=== PATIENT | male | born 1945 | race Caucasian/White ===

== ENCOUNTER → 2017-07-13 | Outpatient (CLI) | payer MEDICARE ==
[2017-07-13 08:55] LABS: ANION GAP 12 (5-19); BLOOD UREA NITROGEN 18 mg/dL (7-20); CALCIUM 9.1 mg/dL (8.4-10.2); CARBON DIOXIDE 30 mmol/L (22-30); CHLORIDE 100 mmol/L (98-107); CREATININE RESULT 0.82 mg/dL (0.52-1.25); Direct HDL 46 mg/dL (>40); GLUCOSE 108 mg/dL (75-110); MAGNESIUM 1.8 mg/dL (1.6-2.3); POTASSIUM 4.3 mmol/L (3.6-5.0); SODIUM 142.2 mmol/L (137-145); TRIGLYCERIDES 104 mg/dL (<150)
[2017-07-13 09:06] LABS: DIRECT LDL 77 mg/dL (<100)
== END ==
LOC: OD 07:24
PROVIDERS: ATTEND Internal Medicine Cardiovascular Disease
DX: E11.9 Type 2 diabetes mellitus without complications (principal); R00.2 Palpitations; E78.2 Mixed hyperlipidemia
CPT/HCPCS: 36415; 80048; 80061; 83036; 83735; 84443

== ENCOUNTER → 2017-07-14 | Outpatient (CLI) | payer MEDICARE ==
[2017-07-14 16:29] LABS: HEMATOCRIT 48.2 % (37.9-51.0); HEMOGLOBIN 16.3 g/dL (13.5-17.0); HGB HCT DIFFERENCE 0.7; MEAN CORPUSCULAR HEMOGLOBIN 32.3 pg (27.0-33.4); MEAN CORPUSCULAR HGB CONC 33.8 g/dL (32.0-36.0); MEAN CORPUSCULAR VOLUME 96 fl (80-97); RED BLOOD COUNT 5.04 10^6/uL (4.35-5.55); RED CELL DISTRIBUTION WIDTH 14.5 % (11.5-14.0)
[2017-07-14 16:31] LABS: PROTHROMBIN TIME 12.3 SEC (11.4-15.4)
[2017-07-14 16:32] LABS: PARTIAL THROMBOPLASTIN TIME 33.1 SEC (23.5-35.8)
[2017-07-14 16:46] LABS: ANION GAP 12 (5-19); BLOOD UREA NITROGEN 20 mg/dL (7-20); CARBON DIOXIDE 29 mmol/L (22-30); CHLORIDE 102 mmol/L (98-107); CREATININE RESULT 0.79 mg/dL (0.52-1.25); GLUCOSE 102 mg/dL (75-110); POTASSIUM 4.7 mmol/L (3.6-5.0); SODIUM 142.6 mmol/L (137-145)
== END ==
LOC: OD 15:58
PROVIDERS: ATTEND Internal Medicine Cardiovascular Disease
DX: Z01.810 Encounter for preprocedural cardiovascular examination (principal); Z01.818 Encounter for other preprocedural examination; R07.89 Other chest pain; Z79.01 Long term (current) use of anticoagulants
CPT/HCPCS: 36415; 80048; 85027; 85610; 85730

== ENCOUNTER 2017-12-11 20:09 | Inpatient (IN) | payer MEDICARE ==
--- NOTE | 2017-12-11 20:36 | EKG REPORT ---
SEVERITY:- ABNORMAL ECG - SINUS RHYTHM BORDERLINE RIGHT AXIS DEVIATION NONSPECIFIC T ABNORMALITIES, INFERIOR LEADS : Confirmed by: Deepa Dempsey 11-Dec-2017 17:36:00
[2017-12-11] MEDS ORDERED: VANCOMYCIN HCL INJ 1000 MG VIAL IV ONE (20:47)
[2017-12-11] MEDS ORDERED: PIPERACILLIN/TAZOBACTAM 3.375 GM VIAL IV ONE (20:47)
--- NOTE | 2017-12-11 20:58 | RADIOLOGY REPORT (SQ) ---
EXAM DESCRIPTION: CT HEAD WITHOUT COMPLETED DATE/TIME: 12/11/2017 8:35 pm REASON FOR STUDY: stroke sx COMPARISON: None. TECHNIQUE: Axial images acquired through the brain without intravenous contrast. Images reviewed wi th bone, brain and subdural windows. Images stored on PACS. All CT scanners at this facility use dose modulation, iterative reconstruction, and/or weight based d osing when appropriate to reduce radiation dose to as low as reasonably achievable (ALARA). [facility]: Dose Right [facility]: CareDose [facility]: Dose Right [facility]: Teradose 4D [facility]: MobileSuites RADIATION DOSE: CT Rad equipment meets quality standard of care and radiation dose reduction techniq ues were employed. CTDIvol: 53.2 mGy. DLP: 1070 mGy-cm. mGy. LIMITATIONS: None. FINDINGS: VENTRICLES: Mildly prominent. CEREBRUM: No masses. No hemorrhage. No midline shift. Areas of low density in the white matter mos t likely due to chronic micro-vascular ischemic change. No evidence for acute infarction. CEREBELLUM: No masses. No hemorrhage. No alteration of density. No evidence for acute infarction. EXTRAAXIAL SPACES: Mild age-related involutional change. No fluid collections. No masses. ORBITS AND GLOBE: No intra- or extraconal masses. Normal contour of globe without masses. CALVARIUM: No fracture. PARANASAL SINUSES: No fluid or mucosal thickening. SOFT TISSUES: No mass or hematoma. OTHER: No other significant finding. IMPRESSION: MILD CHRONIC CHANGES OF ATROPHY AND MICROVASCULAR ISCHEMIA. NO ACUTE PROCESS. EVIDENCE OF ACUTE STROKE: NO. TECHNICAL DOCUMENTATION: JOB ID: [id number] Quality ID # [id number]: Final reports with documentation of one or more dose reduction techniques (e.g., Au tomated exposure control, adjustment of the mA and/or kV according to patient size, use of iterative reconstruction technique) 2010 [employer]- All Rights Reserved Reading location - IP/workstation name: [email or web address]
--- NOTE | 2017-12-11 21:00 | RADIOLOGY REPORT (SQ) ---
EXAM DESCRIPTION: CHEST SINGLE VIEW COMPLETED DATE/TIME: 12/11/2017 8:37 pm REASON FOR STUDY: stroke alert COMPARISON: 05/26/2017 EXAM PARAMETERS: NUMBER OF VIEWS: One view. TECHNIQUE: Single frontal radiographic view of the chest acquired. RADIATION DOSE: NA LIMITATIONS: None. FINDINGS: LUNGS AND PLEURA: Chronically increased right lung base interstitial markings. No new foc al consolidation. No pneumothorax. No pleural effusion. MEDIASTINUM AND HILAR STRUCTURES: No masses. Contour normal. HEART AND VASCULAR STRUCTURES: Heart normal in size. Normal vasculature. BONES: No acute findings. HARDWARE: None in the chest. OTHER: No other significant finding. IMPRESSION: NO ACUTE RADIOGRAPHIC FINDING IN THE CHEST. TECHNICAL DOCUMENTATION: JOB ID: [id number] [employer]- All Rights Reserved Reading location - IP/workstation name: [email or web address]
--- NOTE | 2017-12-11 21:07 | ER Document Report ---
ED General - General Chief Complaint: Trouble Talking Stated Complaint: POSSIBLE STROKE SYMPTOMS Time Seen by Provider: 12/11/17 20:34 Mode of Arrival: Wheelchair Information source: Patient, Relative Notes: 72-year-old male history of COPD presents with complaints of difficulty with his speech. is unclear of the last known well possibly this morning around 10 AM, notes that when she awoke from sleeping around 6 PM the patient was having difficulty with speech that she noticed that he was having some difficulty breathing breathing from his belly. Patient has been having cellulitis of his right anterior llanos with drainage of approximately 8 week duration TRAVEL OUTSIDE OF THE [place] IN LAST 30 DAYS: No - HPI Onset: Just prior to arrival Onset/Duration: Sudden Quality of pain: Achy Severity: Mild Pain Level: 1 Associated symptoms: Shortness of breath, Other Exacerbated by: Other Relieved by: Denies Similar symptoms previously: No Recently seen / treated by doctor: No - Related Data Allergies/Adverse Reactions: No Known Allergies Allergy (Verified 12/11/17 20:10) Past Medical History - Social History Smoking Status: Never Smoker Cigarette use (# per day): No Chew tobacco use (# tins/day): No Smoking Education Provided: No Family History: Reviewed & Not Pertinent - Past Medical History Cardiac Medical History: Reports: Hx Hypercholesterolemia, Hx Hypertension Denies: Hx Coronary Artery Disease, Hx Heart Attack Pulmonary Medical History: Reports: Hx COPD Denies: Hx Asthma, Hx Bronchitis, Hx Pneumonia Neurological Medical History: Denies: Hx Cerebrovascular Accident, Hx Seizures Endocrine Medical History: Reports: Hx Diabetes Mellitus Type 2 Musculoskeltal Medical History: 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 Denies recent illness. EENT: Denies eye, ear, throat, or mouth pain or symptoms. Denies nasal or sinus congestion or discharge. Denies throat, tongue, or mouth swelling or difficulty swallowing. CARDIOVASCULAR: Denies chest pain. Denies palpitations or racing or irregular heart beat. Denies ankle edema. RESPIRATORY: Denies cough, cold, or chest congestion. Denies shortness of breath, difficulty breathing, or wheezing. GASTROINTESTINAL: Denies abdominal pain or distention. Denies nausea, vomiting , or diarrhea. Denies blood in vomitus, stools, or per rectum. Denies black, tarry stools. Denies constipation. GENITOURINARY: Denies difficulty urinating, painful urination, burning, frequency, blood in urine, or discharge. MUSCULOSKELETAL: Denies back or neck pain or stiffness. Denies joint pain or swelling. SKIN: Right leg redness HEMATOLOGIC : Denies easy bruising or bleeding. LYMPHATIC: Denies swollen, enlarged glands. NEUROLOGICAL: Denies confusion or altered mental status. Denies passing out or loss of consciousness. Denies dizziness or lightheadedness. Denies headache. Denies weakness or paralysis or loss of use of either side. Denies problems with gait or speech. Denies sensory loss, numbness, or tingling. Denies seizures. PSYCHIATRIC: Denies anxiety or stress. Denies depression, suicidal ideation, or homicidal ideation. ALL OTHER SYSTEMS REVIEWED AND NEGATIVE. Dictation was performed using [employer] voice recognition software PHYSICAL EXAMINATION: GENERAL: Well-appearing, well-nourished and in no acute distress. HEAD: Atraumatic, normocephalic. EYES: Pupils equal round and reactive to light, extraocular movements intact, sclera anicteric, conjunctiva are normal. ENT: Nares patent, oropharynx clear without exudates. Moist mucous membranes. NECK: Normal range of motion, supple without lymphadenopathy LUNGS: Breath sounds clear to auscultation bilaterally and equal. No wheezes rales or rhonchi. HEART: Regular rate and rhythm without murmurs ABDOMEN: Soft, nontender, nondistended abdomen. No guarding, no rebound. No masses appreciated. Musculoskeletal: Normal range of motion, no pitting or edema. No cyanosis. NEUROLOGICAL: Patient is able to speak in full sentences and then intermittently stops and has difficulty remembering words PSYCH: Normal mood, normal affect. SKIN: Right lower extremity cellulitic with anterior llanos drainage Physical Exam - Vital signs Vitals: Temp Pulse Resp BP Pulse Ox 100.1 F 102 H 20 126/64 H 96 12/11/17 20:16 12/11/17 20:16 12/11/17 20:16 12/11/17 20:16 12/11/17 20:16 Course - Re-evaluation Re-evalutation: 12/11/17 21:[address] which noted no acute abnormality, is unclear if this is actually a CVA versus TIA or if the patient is a septic 12/11/17 22:48 patietns labs note lactic 3.0, temp 100.1, cellulitis , pt i sweta is confused from the sepsis rather than a stroke. will admit for sepsis - Vital Signs Vital signs: Temp Pulse Resp BP Pulse Ox 100.1 F 102 H 20 126/64 H 96 12/11/17 20:16 12/11/17 20:16 12/11/17 20:16 12/11/17 20:16 12/11/17 20:16 - Laboratory Result Diagrams: 12/11/17 20:55 12/11/17 22:00 Laboratory results interpreted by me: 12/11/17 12/11/17 12/11/17 20:46 20:55 20:55 WBC 19.9 H RDW 14.3 H Seg Neutrophils % 86.4 H Lymphocytes % 6.3 L Absolute Neutrophils 17.2 H BUN Glucose POC Glucose 155 H Lactic Acid 3.0 H 12/11/17 22:00 WBC RDW Seg Neutrophils % Lymphocytes % Absolute Neutrophils BUN 22 H Glucose 150 H POC Glucose Lactic Acid - Diagnostic Test Radiology reviewed: Image reviewed - CT head without contrast noted no acute abnormality, Reports reviewed Critical Care Note - Critical Care Note Total time excluding time spent on procedures (mins): 31 Comments: 31 minutes of critical care time spent in direct contact evaluating and reevaluating the patient, treating symptoms, reviewing labs and studies and speaking with family and consultants excluding any procedures Discharge - Discharge Clinical Impression: Sepsis affecting skin Cellulitis Qualifiers: Site of cellulitis: extremity Site of cellulitis of extremity: lower extremity Laterality: right Qualified Code(s): L03.115 - Cellulitis of right lower limb Condition: Stable Disposition: ADMITTED INPATIENT Admitting Provider: Hospitalist Unit Admitted: Telemetry
[2017-12-11 21:11] LABS: ABSOLUTE BASOPHILS # (AUTO) 0.1 10^3/uL (0.0-0.2); ABSOLUTE LYMPHOCYTES (AUTO) 1.2 10^3/uL (0.5-4.7); ABSOLUTE MONOCYTES (AUTO) 1.4 10^3/uL (0.1-1.4); ABSOLUTE NEUT (AUTO) 17.2 10^3/uL (1.7-8.2); BASOPHILS % (AUTO) 0.3 % (0-2); HEMATOCRIT 42.2 % (37.9-51.0); HEMOGLOBIN 13.9 g/dL (13.5-17.0); INTERNATIONAL RATION (INR) 1.11; LYMPHOCYTES % (AUTO) 6.3 % (13-45); MEAN CORPUSCULAR HEMOGLOBIN 31.3 pg (27.0-33.4); MEAN CORPUSCULAR HGB CONC 32.9 g/dL (32.0-36.0); MEAN CORPUSCULAR VOLUME 95 fl (80-97); PLATELET COUNT 171 10^3/uL (150-450); RED BLOOD COUNT 4.43 10^6/uL (4.35-5.55); RED CELL DISTRIBUTION WIDTH 14.3 % (11.5-14.0); SEGMENTED NEUTROPHILS % (AUTO) 86.4 % (42-78); TOTAL CELLS COUNTED % (AUTO) 100 %; WHITE BLOOD COUNT 19.9 10^3/uL (4.0-10.5)
[2017-12-11 21:12] LABS: PARTIAL THROMBOPLASTIN TIME 33.6 SEC (23.5-35.8)
[2017-12-11 21:17] LABS: PROTHROMBIN TIME 14.8 SEC (11.4-15.4)
[2017-12-11 21:48] LABS: VENOUS BLOOD BASE EXCESS 2.9 mmol/L; VENOUS BLOOD PCO2 44.4 mmHg (35-63); VENOUS BLOOD PH 7.42 (7.30-7.42)
[2017-12-11 21:49] LABS: CREATINE KINASE MB 0.54 ng/mL (<4.55); TROPONIN I 0.018 ng/mL
[2017-12-11 22:32] LABS: ALANINE AMINOTRANSFERASE 23 U/L (21-72); ALBUMIN 3.7 g/dL (3.5-5.0); ALKALINE PHOSPHATASE 59 U/L (38-126); ANION GAP 12 (5-19); ASPARTATE AMINO TRANSFERASE 18 U/L (17-59); BILIRUBIN,DIRECT 0.2 mg/dL (0.0-0.4); BILIRUBIN,TOTAL 0.6 mg/dL (0.2-1.3); BLOOD UREA NITROGEN 22 mg/dL (7-20); CALCIUM 9.2 mg/dL (8.4-10.2); CARBON DIOXIDE 29 mmol/L (22-30); CHLORIDE 99 mmol/L (98-107); CREATINE KINASE 93 U/L (55-170); GLUCOSE 150 mg/dL (75-110); POTASSIUM 4.3 mmol/L (3.6-5.0); TOTAL PROTEIN 6.4 g/dL (6.3-8.2)
[2017-12-11] MEDS ORDERED: OXYCODONE-ACETAMINOPHEN 5-325 MG TABLET PO PRN (23:00)
[2017-12-11] MEDS ORDERED: ONDANSETRON HCL INJ/PF 4 MG/2 ML SDV IV PRN (23:00)
[2017-12-11] MEDS ORDERED: ACETAMINOPHEN 325 MG TABLET PO PRN (23:00)
[2017-12-11] MEDS ORDERED: DEXTROSE 50%-WATER 25 GM/50 ML DISP.SYRIN IV PRN ×2 (23:10)
[2017-12-11] MEDS ORDERED: GLUCAGON,HUMAN RECOMB 1 MG INJ IM PRN (23:10)
[2017-12-11] MEDS ORDERED: DEXTROSE 40% GEL 15 GM TUBE PO PRN ×2 (23:10)
[2017-12-11] MEDS ORDERED: VANCOMYCIN HCL 0 MG in DEXTROSE 5%-WATER 250 ML IV NR (23:15)
[2017-12-11] MEDS ORDERED: VANCOMYCIN HCL INJ 1000 MG VIAL IV PRN (23:25)
[2017-12-11] MEDS ORDERED: VANCOMYCIN HCL 1,000 MG in DEXTROSE 5%-WATER 250 ML IV ONE (23:30)
--- NOTE | 2017-12-12 | PDOC H&P ---
History of Present Illness Admission Date/PCP: 12/11/17 23:00 History of Present Illness: KEILA VIEYRA is a 72 year old male patient with past medical history of HTN, COPD, HLD, diabetes mellitus and obesity, brought with chief complaint of confusion, incoherent speech and shortness of breath. All his symptoms resolved with spontaneously when he arrived to the hospital. Patient found to have draining cellulitis of the left lower extremity. The cellulitis has been going on for the last 6 weeks and patient has visited a 2 occasions his primary care physician for which she was given topical antibiotics. His blood work shows leukocytosis of 20,000 and lactic acid of 3. Patient also found to have fever of 100.1. His CT scan is negative for acute intracranial process. No history of chest pain, palpitation or diaphoresis. He does not have any nausea , vomiting, abdominal pain or diarrhea. No urinary complaints. His difficulty of speech and confusion might be explained by sepsis but for the benefit of the doubt I would request MRI of the brain to rule out stroke. Past Medical History Cardiac Medical History: Reports: Hyperlipidema, Hypertension Denies: Coronary Artery Disease, Myocardial Infarction Pulmonary Medical History: Reports: Chronic Obstructive Pulmonary Disease (COPD) Denies: Asthma, Bronchitis, Pneumonia Neurological Medical History: Denies: Seizures Endocrine Medical History: Reports: Diabetes Mellitus Type 2 Musculoskeltal Medical History: Reports: Arthritis - spine, right hip, bilat hands more so right hand Hematology: Denies: Anemia Past Surgical History Past Surgical History: Reports: Appendectomy Social History Smoking Status: Never Smoker Frequency of Alcohol Use: None Drugs: None - Advance Directive Resuscitation Status: Full Code Family History Family History: Reviewed & Not Pertinent, DM, Hypertension Parental Family History Reviewed: Yes Children Family History Reviewed: Yes Sibling(s) Family History Reviewed.: Yes Medication/Allergy Home Medications: Aspirin [Adult Low Dose Aspirin EC] 81 mg PO DAILY 04/28/16 Atorvastatin Calcium 40 mg PO DAILY 04/28/16 Benazepril HCl 10 mg PO DAILY 04/28/16 Finasteride 5 mg PO DAILY 04/28/16 Levothyroxine Sodium 150 mcg PO DAILY 04/28/16 Metformin HCl 500 mg PO DAILY 04/28/16 Tamsulosin HCl [Flomax] 0.4 mg PO DAILY 04/28/16 Allergies/Adverse Reactions: No Known Allergies Allergy (Verified 12/11/17 20:10) Review of Systems Constitutional: PRESENT: as per HPI Eyes: PRESENT: as per HPI Cardiovascular: PRESENT: as per HPI Respiratory: PRESENT: as per HPI Gastrointestinal: PRESENT: as per HPI Integumentary: PRESENT: as per HPI Neurological: PRESENT: as per HPI Physical Exam Vital Signs: Temp Pulse Resp BP Pulse Ox 100.1 F 100 26 H 112/77 95 12/11/17 20:16 12/11/17 21:00 12/11/17 23:01 12/11/17 23:00 12/11/17 23:01 General appearance: PRESENT: mild distress Eye exam: PRESENT: conjunctiva pink, EOMI, PERRLA. ABSENT: scleral icterus Respiratory exam: PRESENT: clear to auscultation javier. ABSENT: rales, rhonchi, wheezes Cardiovascular exam: PRESENT: RRR. ABSENT: diastolic murmur, rubs, systolic murmur GI/Abdominal exam: PRESENT: normal bowel sounds, soft. ABSENT: distended, guarding, mass, organolmegaly, rebound, tenderness Extremities exam: PRESENT: other - The pertinent finding is an indurated swollen tender pus draining cellulitis of the right lower extremity Neurological exam: PRESENT: alert, awake, oriented to person, oriented to place , oriented to time, oriented to situation, CN II-XII grossly intact. ABSENT: motor sensory deficit Psychiatric exam: PRESENT: appropriate affect, normal mood. ABSENT: homicidal ideation, suicidal ideation Results Impressions: Chest X-Ray 12/11/17 00:00 IMPRESSION: NO ACUTE RADIOGRAPHIC FINDING IN THE CHEST. Head CT 12/11/17 00:00 IMPRESSION: MILD CHRONIC CHANGES OF ATROPHY AND MICROVASCULAR ISCHEMIA. NO ACUTE PROCESS. EVIDENCE OF ACUTE STROKE: NO. Assessment & Plan - Diagnosis (1) Sepsis Qualifiers: Sepsis type: sepsis due to unspecified organism Qualified Code(s): A41.9 - Sepsis, unspecified organism Is this a current diagnosis for this admission?: Yes Plan: Patient has leukocytosis, fever, lactic acidosis and source of infection. He is empirically started on vancomycin and Zosyn. Wound culture and blood cultures are requested. And we de-escalate his antibiotics based on his clinical progress and culture results. (2) Cellulitis Qualifiers: Laterality: right Is this a current diagnosis for this admission?: Yes Plan: As a #1 (3) COPD (chronic obstructive pulmonary disease) Qualifiers: Chronic bronchitis type: unspecified Is this a current diagnosis for this admission?: Yes Plan: Stable. As needed breathing treatments. (4) Hypertension Qualifiers: Hypertension type: essential hypertension Qualified Code(s): I10 - Essential (primary) hypertension Is this a current diagnosis for this admission?: Yes Plan: His home medications. - Time Time Spent: 30 to 50 Minutes - Inpatient Certification Medical Necessity: Significant Comorbidiites Make Outpatient Treatment Too Risky , Need for IV Antibiotics
[2017-12-12] MEDS ORDERED: PIPERACILLIN/TAZOBACTAM 3.375 GM VIAL IV ONE (02:48)
[2017-12-12] MEDS ORDERED: VANCOMYCIN HCL INJ 1000 MG VIAL ONE (02:49)
[2017-12-12] MEDS ORDERED: PIPERACILLIN/TAZOBACTAM 3.375 GM VIAL IV PRN (04:00)
[2017-12-12] MEDS: PIPERACILLIN SODIUM/TAZOBACTAM 3.375 GM in NORMAL SALINE 100 ML IV SCH ×3 (05:12→20:28)
[2017-12-12] MEDS: LANSOPRAZOLE 30 MG TAB.RAP.DR PO SCH (05:17)
[2017-12-12 06:14] LABS: ABSOLUTE BASOPHILS # (AUTO) 0.1 10^3/uL (0.0-0.2); ABSOLUTE LYMPHOCYTES (AUTO) 1.6 10^3/uL (0.5-4.7); ABSOLUTE MONOCYTES (AUTO) 1.4 10^3/uL (0.1-1.4); ABSOLUTE NEUT (AUTO) 14.7 10^3/uL (1.7-8.2); BASOPHILS % (AUTO) 0.5 % (0-2); HEMATOCRIT 38.8 % (37.9-51.0); HEMOGLOBIN 12.7 g/dL (13.5-17.0); LYMPHOCYTES % (AUTO) 9.1 % (13-45); MEAN CORPUSCULAR HEMOGLOBIN 30.8 pg (27.0-33.4); MEAN CORPUSCULAR HGB CONC 32.7 g/dL (32.0-36.0); MEAN CORPUSCULAR VOLUME 94 fl (80-97); MONOCYTES % (AUTO) 8.1 % (3-13); PLATELET COUNT 152 10^3/uL (150-450); RED BLOOD COUNT 4.13 10^6/uL (4.35-5.55); RED CELL DISTRIBUTION WIDTH 14.5 % (11.5-14.0); SEGMENTED NEUTROPHILS % (AUTO) 82.3 % (42-78); TOTAL CELLS COUNTED % (AUTO) 100 %; WHITE BLOOD COUNT 17.9 10^3/uL (4.0-10.5)
[2017-12-12 06:35] LABS: ANION GAP 12 (5-19); BLOOD UREA NITROGEN 22 mg/dL (7-20); CALCIUM 8.6 mg/dL (8.4-10.2); CARBON DIOXIDE 27 mmol/L (22-30); CHLORIDE 101 mmol/L (98-107); GLUCOSE 167 mg/dL (75-110); POTASSIUM 3.6 mmol/L (3.6-5.0)
[2017-12-12] MEDS: INSULIN LISPRO 100 UNIT/ML 3 ML VIAL SUBCUT PRN ×2 (08:04→16:09)
[2017-12-12] MEDS ORDERED: DIAZEPAM INJ 10 MG/2 ML DISP.SYRIN IV PRN (10:30)
[2017-12-12] MEDS ORDERED: LEVOTHYROXINE SODIUM 0.15 MG TABLET PO ONE (10:30)
[2017-12-12] MEDS ORDERED: ASPIRIN 81 MG TABLET, ENT COATED PO ONE (10:30)
[2017-12-12] MEDS: ENOXAPARIN SODIUM INJ 40 MG/0.4 ML DISP.SYRIN SUBCUT SCH (10:33)
[2017-12-12] MEDS ORDERED: VANCOMYCIN HCL 1,500 MG in DEXTROSE 5%-WATER 250 ML IV ONE (11:30)
--- NOTE | 2017-12-12 12:12 | RADIOLOGY REPORT (SQ) ---
EXAM DESCRIPTION: MRI HEAD COMBO COMPLETED DATE/TIME: 12/12/2017 11:57 am REASON FOR STUDY: stroke COMPARISON: CT dated 12/11/2017. TECHNIQUE: Multiplanar imaging includes noncontrasted T1, T2, FLAIR, diffusion with ADC map and post gadolinium contrast T1 sequences. Images stored on PACS. CONTRAST TYPE AND DOSE: 20 mL Multihance. RENAL FUNCTION: GFR > 60. LIMITATIONS: None. FINDINGS: ANATOMY: No anomalies. Normal vascular flow voids. Pituitary fossa normal. CSF SPACES: Normal in size and contour. No hemorrhage. CEREBRUM: Sulci and gyri normal in size and contour. Normal white matter signal on FLAIR imaging. No evidence of hemorrhage, mass, or extraaxial fluid collection. No abnormal enhancement post contrast. POSTERIOR FOSSA: No signal alteration. No hemorrhage. No edema, masses, or mass effect. Internal nadia tory canals, cerebellopontine angles, mastoids normal. No enhancing lesions. No abnormal enhancement post contrast. DIFFUSION IMAGING: Negative for acute or subacute infarction. ORBITS: No masses. Globes normal. PARANASAL SINUSES: No fluid levels. Mucosa normal. OTHER: No other significant finding. IMPRESSION: NORMAL MRI OF THE BRAIN WITHOUT AND WITH INTRAVENOUS GADOLINIUM CONTRAST. EVIDENCE OF ACUTE STROKE: NO. TECHNICAL DOCUMENTATION: JOB ID: [id number] [employer]- All Rights Reserved Reading location - IP/workstation name: [email or web address]
--- NOTE | 2017-12-12 12:14 | RADIOLOGY REPORT (SQ) ---
EXAM DESCRIPTION: MRA HEAD WITHOUT COMPLETED DATE/TIME: 12/12/2017 11:57 am REASON FOR STUDY: acute confusion and weakness. Eval for cva COMPARISON: None. TECHNIQUE: Axial 3-D [id number] acquisition imaging performed through the brain in the area of t he [place] of [place]. Images reformatted using 3-D MIPS. LIMITATIONS: None. FINDINGS: SOURCE IMAGES: No unexpected findings on source images. No large masses. 3-D MIP: No aneurysm. No occlusions. No significant stenosis. OTHER: No other significant finding. IMPRESSION: NORMAL MRA OF THE [place] OF [place]. TECHNICAL DOCUMENTATION: JOB ID: [id number] [employer]- All Rights Reserved Reading location - IP/workstation name: [email or web address]
--- NOTE | 2017-12-12 18:48 | PDOC PROGRESS REPORT ---
<CANDE STEIN A - Last Filed: 12/12/17 18:43> Subjective Progress Note for:: 12/12/17 Subjective:: KEILA VIEYRA is a 72-year-old male with a PMH of HTN, COPD, HLD, diabetes and obesity. He originally presented to the emergency department 12/11/2017 with a chief complaint of confusion, incoherent speech and difficulty with word finding. His symptoms resolved spontaneously while he was in the emergency department, but an incidental finding on the assessment was he had draining cellulitis to the left lower extremity. The patient was admitted for treatment of his cellulitis, as well as TIA workup. The patient was seen this morning on rounds, he is sitting up on the side of the bed eating breakfast. The patient is a and O 3, able to answer all questions appropriately and carry on a coherent conversation. The patient denies difficulty with word finding, denies confusion, and states he feels " like his normal self." No focal deficits noted in the upper or lower extremities, although he does exhibit mild weakness (4/5) equally in his bilateral lower extremities. RLE appears erythematous with +1 pitting edema, open draining blisters on the anterior aspect of the right lower extremity. The patient endorses tenderness to palpation to the area below his knee. Reason For Visit: SEPSIS/CELLULITIS Physical Exam Vital Signs: Temp Pulse Resp BP Pulse Ox 99.8 F 108 H 20 120/80 95 12/12/17 15:32 12/12/17 15:32 12/12/17 15:32 12/12/17 15:32 12/12/17 15:32 Intake & Output 12/11/17 12/12/17 12/13/17 06:59 06:59 06:59 Intake Total 942 1075 Output Total 250 Balance 692 1075 Weight 130 kg General appearance: PRESENT: no acute distress Eye exam: PRESENT: conjunctiva pink, PERRLA Mouth exam: PRESENT: moist Neck exam: PRESENT: full ROM Respiratory exam: PRESENT: clear to auscultation javier, symmetrical, unlabored Cardiovascular exam: PRESENT: +S1, +S2 Pulses: PRESENT: normal radial pulses, +1 pedal pulses bilateral GI/Abdominal exam: PRESENT: normal bowel sounds, soft. ABSENT: tenderness Extremities exam: PRESENT: full ROM, pedal edema, +1 edema Musculoskeletal exam: PRESENT: ambulatory, full ROM Neurological exam: PRESENT: alert, awake, oriented to person, oriented to place , oriented to time, oriented to situation. ABSENT: motor sensory deficit, aphasic Psychiatric exam: PRESENT: appropriate affect Skin exam: PRESENT: erythema - RLE, intact, vesicles - Anterior lower right leg Results Laboratory Results: 12/12/17 06:05 12/12/17 06:05 12/12/17 12/12/17 12/12/17 01:09 06:05 06:05 WBC 17.9 H RBC 4.13 L Hgb 12.7 L Hct 38.8 MCV 94 MCH 30.8 MCHC 32.7 RDW 14.5 H Plt Count 152 Seg Neutrophils % 82.3 H Lymphocytes % 9.1 L Monocytes % 8.1 Eosinophils % 0.0 Basophils % 0.5 Absolute Neutrophils 14.7 H Absolute Lymphocytes 1.6 Absolute Monocytes 1.4 Absolute Eosinophils 0.0 Absolute Basophils 0.1 Sodium 140.0 Potassium 3.6 Chloride 101 Carbon Dioxide 27 Anion Gap 12 BUN 22 H Creatinine 0.89 Est GFR ( Amer) > 60 Est GFR (Non-Af Amer) > 60 Glucose 167 H Lactic Acid 1.7 Calcium 8.6 Impressions: Chest X-Ray 12/11/17 00:00 IMPRESSION: NO ACUTE RADIOGRAPHIC FINDING IN THE CHEST. Head CT 12/11/17 00:00 IMPRESSION: MILD CHRONIC CHANGES OF ATROPHY AND MICROVASCULAR ISCHEMIA. NO ACUTE PROCESS. EVIDENCE OF ACUTE STROKE: NO. Brain MRI with MRA 12/12/17 00:00 IMPRESSION: NORMAL MRA OF THE [place] OF [place]. Head MRI 12/12/17 00:00 IMPRESSION: NORMAL MRI OF THE BRAIN WITHOUT AND WITH INTRAVENOUS GADOLINIUM CONTRAST. EVIDENCE OF ACUTE STROKE: NO. Status: Imported from PACS Assessment & Plan - Diagnosis (1) Sepsis QualifierTitle: Sepsis type: sepsis due to unspecified organism Qualified Code(s): A41.9 - Sepsis, unspecified organism Is this a current diagnosis for this admission?: Yes Plan: Improving. Sepsis as evidenced by leukocytosis (WBC19.9 ->17), elevated lactate (3.0 ->1.7), acute confusion (albeit transient) Infectious source is likely right lower extremity cellulitis. Empirically started on vancomycin and Zosyn IV. Wound and blood cultures pending. (2) TIA (transient ischemic attack) QualifierTitle: Transient cerebral ischemia type: transient global amnesia Qualified Code(s): G45.4 - Transient global amnesia Is this a current diagnosis for this admission?: Yes Plan: Patient initially presented to the emergency department for difficulty with word finding, incoherent speech, and altered mental status. Patient symptoms resolved spontaneously while in the emergency department. No focal deficits upon evaluation today Initial head CT benign. Continue home dose aspirin and statin. Plan for MRI/MRA head and carotid Doppler as part of TIA workup (3) Cellulitis QualifierTitle: Site of cellulitis: extremity Site of cellulitis of extremity: lower extremity Laterality: right Qualified Code(s): L03.115 - Cellulitis of right lower limb Is this a current diagnosis for this admission?: Yes Plan: Incidental finding upon presentation to the emergency department. Erythema and edema to lower RLE. Open blisters draining serous fluid. Patient states he was previously seeing a vascular surgeon, Dr. Cynthia Donaldson, for the cellulitis in his RLE. He reports that he was never on antibiotics, only on topical triple antibiotic ointment Started on Vanc/Zosyn for broad spectrum coverage, waiting for wound and blood culture results The patient denies fever or chills. He is otherwise nontoxic appearing. (4) HLD (hyperlipidemia) QualifierTitle: Hyperlipidemia type: unspecified Qualified Code(s): E78.5 - Hyperlipidemia, unspecified Is this a current diagnosis for this admission?: Yes Plan: Patient endorses history of hyperlipidemia. We will continue home dose statin. (5) COPD (chronic obstructive pulmonary disease) QualifierTitle: Chronic bronchitis type: unspecified Is this a current diagnosis for this admission?: Yes Plan: Patient endorses history of COPD. Currently requiring supplemental oxygen for SPO2 >88% Lung sounds clear upon auscultation, patient denies shortness of breath or dyspnea. Continue home dose inhalers (6) Hypertension QualifierTitle: Hypertension type: essential hypertension Qualified Code( s): I10 - Essential (primary) hypertension Is this a current diagnosis for this admission?: Yes Plan: Patient endorses a history of hypertension. Restarted on home dose antihypertensives. He has remained relatively NORMOtensive since his admission - Time Time Spent with patient: 15-24 minutes Medications reviewed and adjusted accordingly: Yes Anticipated discharge: Home - Inpatient Certification Based on my medical assessment, after consideration of the patient's comorbidities, presenting symptoms, or acuity I expect that the services needed warrant INPATIENT care.: Yes I certify that my determination is in accordance with my understanding of Medicare's requirements for reasonable and necessary INPATIENT services [42 CFR 412.3e].: Yes Medical Necessity: Risk of Complication if Not Cared For in Hospital <ASHAJOSIASNOVEMBER C - Last Filed: 12/13/17 07:20> Subjective Reason For Visit: SEPSIS/CELLULITIS Physical Exam Vital Signs: Temp Pulse Resp BP Pulse Ox 100.1 F 94 28 H 134/80 H 94 12/13/17 03:37 12/13/17 03:37 12/13/17 03:37 12/13/17 03:37 12/13/17 03:37 Intake & Output 12/12/17 12/13/17 12/14/17 06:59 06:59 06:59 Intake Total 942 1920 Output Total 250 1300 Balance 692 620 Weight 130 kg 129 kg Results Laboratory Results: 12/13/17 06:17 12/13/17 06:17 12/13/17 12/13/17 06:17 06:17 WBC 13.7 H RBC 4.16 L Hgb 13.0 L Hct 39.4 MCV 95 MCH 31.2 MCHC 33.0 RDW 14.1 H Plt Count 147 L Seg Neutrophils % 73.0 Lymphocytes % 14.3 Monocytes % 11.8 Eosinophils % 0.5 Basophils % 0.4 Absolute Neutrophils 10.0 H Absolute Lymphocytes 2.0 Absolute Monocytes 1.6 H Absolute Eosinophils 0.1 Absolute Basophils 0.1 Sodium 138.5 Potassium 3.8 Chloride 100 Carbon Dioxide 27 Anion Gap 12 BUN 18 Creatinine 0.81 Est GFR ( Amer) > 60 Est GFR (Non-Af Amer) > 60 Glucose 157 H Calcium 8.8 Impressions: Chest X-Ray 12/11/17 00:00 IMPRESSION: NO ACUTE RADIOGRAPHIC FINDING IN THE CHEST. Head CT 12/11/17 00:00 IMPRESSION: MILD CHRONIC CHANGES OF ATROPHY AND MICROVASCULAR ISCHEMIA. NO ACUTE PROCESS. EVIDENCE OF ACUTE STROKE: NO. Brain MRI with MRA 12/12/17 00:00 IMPRESSION: NORMAL MRA OF THE [place] OF [place]. Head MRI 12/12/17 00:00 IMPRESSION: NORMAL MRI OF THE BRAIN WITHOUT AND WITH INTRAVENOUS GADOLINIUM CONTRAST. EVIDENCE OF ACUTE STROKE: NO. Assessment & Plan - Plan Summary Plan Summary: Cosigning document for Cande Stein NP
[2017-12-12] MEDS: OXYCODONE HCL IR 5 MG TABLET PO PRN (20:29)
[2017-12-12] MEDS: VANCOMYCIN HCL 1,500 MG in DEXTROSE 5%-WATER 250 ML IV SCH (21:39)
[2017-12-12] MEDS: METOPROLOL TARTRATE 25 MG TABLET PO SCH (21:42)
[2017-12-12] MEDS ORDERED: ATORVASTATIN CALCIUM 20 MG TABLET PO SCH (22:00)
[2017-12-12] MEDS ORDERED: ATORVASTATIN CALCIUM 10 MG TABLET PO SCH (22:00)
[2017-12-13] MEDS: OXYCODONE HCL IR 5 MG TABLET PO PRN (03:02)
[2017-12-13] MEDS: PIPERACILLIN SODIUM/TAZOBACTAM 3.375 GM in NORMAL SALINE 100 ML IV SCH ×3 (03:03→14:56)
[2017-12-13] MEDS: LANSOPRAZOLE 30 MG TAB.RAP.DR PO SCH (05:33)
[2017-12-13] MEDS ORDERED: LEVOTHYROXINE SODIUM 0.025 MG TABLET PO SCH (06:00)
[2017-12-13] MEDS ORDERED: LEVOTHYROXINE SODIUM 0.15 MG TABLET PO SCH ×2 (06:00)
[2017-12-13 06:34] LABS: ABSOLUTE BASOPHILS # (AUTO) 0.1 10^3/uL (0.0-0.2); ABSOLUTE EOSINOPHILS # (AUTO) 0.1 10^3/uL (0.0-0.6); ABSOLUTE MONOCYTES (AUTO) 1.6 10^3/uL (0.1-1.4); BASOPHILS % (AUTO) 0.4 % (0-2); EOSINOPHILS % (AUTO) 0.5 % (0-6); HEMATOCRIT 39.4 % (37.9-51.0); LYMPHOCYTES % (AUTO) 14.3 % (13-45); MEAN CORPUSCULAR HEMOGLOBIN 31.2 pg (27.0-33.4); MEAN CORPUSCULAR VOLUME 95 fl (80-97); MONOCYTES % (AUTO) 11.8 % (3-13); PLATELET COUNT 147 10^3/uL (150-450); RED BLOOD COUNT 4.16 10^6/uL (4.35-5.55); RED CELL DISTRIBUTION WIDTH 14.1 % (11.5-14.0); TOTAL CELLS COUNTED % (AUTO) 100 %; WHITE BLOOD COUNT 13.7 10^3/uL (4.0-10.5)
[2017-12-13 06:59] LABS: ANION GAP 12 (5-19); BLOOD UREA NITROGEN 18 mg/dL (7-20); CALCIUM 8.8 mg/dL (8.4-10.2); CARBON DIOXIDE 27 mmol/L (22-30); CHLORIDE 100 mmol/L (98-107); GLUCOSE 157 mg/dL (75-110); POTASSIUM 3.8 mmol/L (3.6-5.0); SODIUM 138.5 mmol/L (137-145)
[2017-12-13] MEDS ORDERED: (PENDING PHARMACY ID) (Levothyroxine Sodium [Synthroid] 175 MCG) PO SCH (08:00)
[2017-12-13] MEDS: INSULIN LISPRO 100 UNIT/ML 3 ML VIAL SUBCUT PRN (08:37)
[2017-12-13] MEDS ORDERED: (PENDING PHARMACY ID) (Rosuvastatin Calcium [Crestor 5 Mg Tablet] 5 MG) PO SCH (10:00)
[2017-12-13] MEDS ORDERED: CHOLECALCIFEROL (D3) 1,000 UNIT TABLET PO SCH (10:00)
[2017-12-13] MEDS ORDERED: TIOTROPIUM BROMIDE DPI 5 CAP/KIT (18 MCG/CAP) IH SCH (10:00)
[2017-12-13] MEDS ORDERED: ASPIRIN 81 MG TABLET, ENT COATED PO SCH (10:00)
[2017-12-13] MEDS ORDERED: TAMSULOSIN HCL 0.4 MG CAP.SR.24H PO SCH (10:00)
[2017-12-13] MEDS: ENOXAPARIN SODIUM INJ 40 MG/0.4 ML DISP.SYRIN SUBCUT SCH (10:04)
[2017-12-13] MEDS: METOPROLOL TARTRATE 25 MG TABLET PO SCH (10:05)
[2017-12-13] MEDS: VANCOMYCIN HCL 1,500 MG in DEXTROSE 5%-WATER 250 ML IV SCH (12:23)
--- NOTE | 2017-12-13 16:55 | RADIOLOGY REPORT (SQ) ---
EXAM DESCRIPTION: CAROTID DOPPLER COMPLETED DATE/TIME: 12/13/2017 4:45 pm REASON FOR STUDY: tia workup COMPARISON: None. TECHNIQUE: Grayscale ultrasound, Doppler velocity and spectra, and color Doppler images acquired of the extra-cranial carotid and vertebral arteries. Images stored on PACS. LIMITATIONS: None. FINDINGS: RIGHT CAROTID CCA Velocities: Within normal limits. ICA Velocities Peak systolic 0.81 m/s. End diastolic 0.22 m/s. Proximal ICA/CCA peak systolic ratio 1.6. Minimal shadowing plaque at the right carotid bifurcation. Distal to the calcific plaque, velocities suggest against flow significant stenosis. LEFT CAROTID CCA Velocities: Within normal limits. ICA Velocities Peak systolic 1.2 m/s. End diastolic 0.35 m/s. Proximal ICA/CCA peak systolic ratio 1.2. Minimal shadowing plaque at the left carotid bifurcation. Distal to the shadowing plaque, velocities suggest against flow significant stenosis VERTEBRAL ARTERIES: Antegrade flow. Normal waveforms. SUBCLAVIAN ARTERIES: Not evaluated OTHER: No other significant finding. IMPRESSION: NO HEMODYNAMICALLY SIGNIFICANT STENOSIS. COMMENT: Quality ID #[id number]: Velocity criteria are extrapolated from the diameter data as defined by t he Society of Radiologists in Ultrasound Consensus Conference. Radiology 2003: 229; 340-346. TECHNICAL DOCUMENTATION: JOB ID: [id number] [employer]- All Rights Reserved Reading location - IP/workstation name: [facility]
--- NOTE | 2017-12-13 16:56 | RADIOLOGY REPORT (SQ) ---
EXAM DESCRIPTION: VENOUS UNILATERAL LOWER COMPLETED DATE/TIME: 12/13/2017 4:45 pm REASON FOR STUDY: Evaluate for DVT. RLE swelling COMPARISON: None. TECHNIQUE: Dynamic and static nicholson scale and color images acquired of the right leg venous system. S elected spectral images acquired with additional compression and augmentation maneuvers. The contrala teral common femoral vein and saphenofemoral junction were also imaged. Images stored on PACS. LIMITATIONS: None. FINDINGS: COMMON FEMORAL: Normal phasicity, compression and augmentation. No visualized echogenic ma terial on nicholson scale. No defects on color images. FEMORAL: Normal compression and augmentation. No visualized echogenic material on nicholson scale. No defe cts on color images. POPLITEAL: Normal compression, augmentation. No visualized echogenic material on nicholson scale. No defec ts on color images. CALF VESSELS: Normal compression, augmentation. No visualized echogenic material on nicholson scale. No de fects on color images. GSV and SSV: Normal compression, augmentation. No visualized echogenic material on nicholson scale. No def ects on color images. ANY DEEP VENOUS INSUFFICIENCY: Not evaluated. ANY EVIDENCE OF POPLITEAL CYST: No. OTHER: No other significant finding. CONTRALATERAL COMMON FEMORAL VEIN AND SAPHENOFEMORAL JUNCTION: Normal phasicity, compression and augmentation. No visualized echogenic material on nicholson scale. No de fects on color images. IMPRESSION: NO EVIDENCE DVT OR SVT IN THE RIGHT LEG. TECHNICAL DOCUMENTATION: JOB ID: [id number] [employer]- All Rights Reserved Reading location - IP/workstation name: [email or web address]
[2017-12-13 18:16] VITALS: BP 103/48
--- NOTE | 2017-12-14 11:39 | PDOC DISCHARGE SUMMARY ---
Addendum entered and electronically signed by CANDE STEIN NP 12/14/17 11 :42: Discharge Summary Admission Date/PCP: 12/11/17 23:00 Resuscitation Status: Full Code - Discharge Diagnosis (1) Sepsis Is this a current diagnosis for this admission?: Yes (2) TIA (transient ischemic attack) Is this a current diagnosis for this admission?: Yes (3) Cellulitis Is this a current diagnosis for this admission?: Yes (4) HLD (hyperlipidemia) Is this a current diagnosis for this admission?: Yes (5) COPD (chronic obstructive pulmonary disease) Is this a current diagnosis for this admission?: Yes (6) Hypertension Is this a current diagnosis for this admission?: Yes Home Medications: Aspirin [Adult Low Dose Aspirin EC] 81 mg PO DAILY 04/28/16 Tamsulosin HCl [Flomax] 0.8 mg PO DAILY 04/28/16 Benazepril/Hydrochlorothiazide [Benazepril-Hctz 10-12.5 mg Tab] 1 each PO QAM Cholecalciferol (Vitamin D3) [Vitamin D3 5000 unit Capsule] 5,000 unit PO DAILY 12/12/17 Furosemide [Lasix 20 mg Tablet] 20 mg PO QAMP PRN 12/12/17 Levothyroxine Sodium [Synthroid] 175 mcg PO QAM 12/12/17 Metformin HCl [Metformin HCl ER] 2,000 mg PO DAILY 12/12/17 Metoprolol Tartrate [Lopressor 25 mg Tablet] 25 mg PO BID 12/12/17 Mirtazapine [Remeron] 30 mg PO DAILYP PRN 12/12/17 Nitroglycerin [Nitrostat 0.4 mg (1/150 Gr) Tabs 25/Bottle] 1 tab SL Q5MP PRN Oxycodone HCl/Acetaminophen [Oxycodon-Acetaminophen 7.5-325] 1 each PO Q8HP PRN 12/12/17 Tiotropium [place] [Spiriva Handihaler 18 mcg/dose (30 Dose)] 18 mcg IH DAILYP PRN 12/12/17 Tramadol HCl [Ultram 50 mg Tablet] 50 mg PO BIDP PRN 12/12/17 Trazodone HCl [Desyrel 50 mg Tablet] 50 mg PO QHS 12/12/17 Allergies/Adverse Reactions: No Known Allergies Allergy (Verified 12/11/17 20:10) Discharge Diet: As Tolerated, Cardiac, Diabetic Discharge Activity: Activity As Tolerated Provider Note Provider Note: Given the amount of swelling and erythema to the RLE, venous Doppler performed to evaluate for DVT. Results were negative. Original Note: <CANDE STEIN Nina - Last Filed: 12/14/17 11:41> General - Admit/Disc Date/PCP Admission Date/Primary Care Provider: 12/11/17 23:00 Discharge Date: 12/13/17 - Discharge Diagnosis (1) Sepsis Is this a current diagnosis for this admission?: Yes (2) TIA (transient ischemic attack) Is this a current diagnosis for this admission?: Yes (3) Cellulitis Is this a current diagnosis for this admission?: Yes (4) HLD (hyperlipidemia) Is this a current diagnosis for this admission?: Yes (5) COPD (chronic obstructive pulmonary disease) Is this a current diagnosis for this admission?: Yes (6) Hypertension Is this a current diagnosis for this admission?: Yes - Additional Information Resuscitation Status: Full Code Discharge Diet: As Tolerated, Cardiac, Diabetic Discharge Activity: Activity As Tolerated Prescriptions: Amoxicillin 500 mg PO Q8H #30 capsule Doxycycline Monohydrate 100 mg PO BID #20 tablet Linezolid 600 mg PO BID #20 tablet Rosuvastatin Calcium 10 mg PO QHS #30 tablet Home Medications: Aspirin [Adult Low Dose Aspirin EC] 81 mg PO DAILY 04/28/16 Tamsulosin HCl [Flomax] 0.8 mg PO DAILY 04/28/16 Benazepril/Hydrochlorothiazide [Benazepril-Hctz 10-12.5 mg Tab] 1 each PO QAM Cholecalciferol (Vitamin D3) [Vitamin D3 5000 unit Capsule] 5,000 unit PO DAILY 12/12/17 Furosemide [Lasix 20 mg Tablet] 20 mg PO QAMP PRN 12/12/17 Levothyroxine Sodium [Synthroid] 175 mcg PO QAM 12/12/17 Metformin HCl [Metformin HCl ER] 2,000 mg PO DAILY 12/12/17 Metoprolol Tartrate [Lopressor 25 mg Tablet] 25 mg PO BID 12/12/17 Mirtazapine [Remeron] 30 mg PO DAILYP PRN 12/12/17 Nitroglycerin [Nitrostat 0.4 mg (1/150 Gr) Tabs 25/Bottle] 1 tab SL Q5MP PRN Oxycodone HCl/Acetaminophen [Oxycodon-Acetaminophen 7.5-325] 1 each PO Q8HP PRN 12/12/17 Tiotropium [place] [Spiriva Handihaler 18 mcg/dose (30 Dose)] 18 mcg IH DAILYP PRN 12/12/17 Tramadol HCl [Ultram 50 mg Tablet] 50 mg PO BIDP PRN 12/12/17 Trazodone HCl [Desyrel 50 mg Tablet] 50 mg PO QHS 12/12/17 Amoxicillin 500 mg PO Q8H #30 capsule 12/13/17 Doxycycline Monohydrate 100 mg PO BID #20 tablet 12/13/17 Linezolid 600 mg PO BID #20 tablet 12/13/17 Rosuvastatin Calcium 10 mg PO QHS #30 tablet 12/13/17 History of Present Illness History of Present Illness: KEILA VIEYRA is a 72 year old male patient with past medical history of HTN, COPD, HLD, diabetes mellitus and obesity, brought with chief complaint of confusion, incoherent speech and shortness of breath. All his symptoms resolved with spontaneously when he arrived to the hospital. Patient found to have draining cellulitis of the left lower extremity. The cellulitis has been going on for the last 6 weeks and patient has visited a 2 occasions his primary care physician for which she was given topical antibiotics. His blood work shows leukocytosis of 20,000 and lactic acid of 3. Patient also found to have fever of 100.1. His CT scan is negative for acute intracranial process. No history of chest pain, palpitation or diaphoresis. He does not have any nausea , vomiting, abdominal pain or diarrhea. No urinary complaints. His difficulty of speech and confusion might be explained by sepsis but for the benefit of the doubt I would request MRI of the brain to rule out stroke. Hospital Course Hospital Course: The patient the patient was admitted to [facility] for TIA workup sepsis due to an incidental finding of cellulitis in the RLE. The patient was initially placed on vancomycin and Zosyn IV for broad-spectrum coverage of his cellulitis. He was resuscitated with IVF in the emergency department and maintenance IVF was continued while inpatient. The patient's lactate dropped from 3 ->1.7 within 24 hrs. Blood cultures were negative. Wound culture grew out Group B beta Strep. The patient remained afebrile, his leukocytosis improved 19->13.3. The patient was discharged home on a 10 day course of doxycycline and amoxicillin. For his TIA workup - Head CT, MRI brain, carotid Doppler were all normal. His neuro exam was benign. Equal strength in all 4 extremities. Able to follow commands appropriately, answer all questions appropriately. No vision changes. No focal deficits whatsoever. The patient was able to ambulate in the room, no ataxia observed. His home regimen of aspirin 81mg and rosuvastatin was continued during his hospital stay. The patient was only taking 5 mg per day of rosuvastatin, a conservative dose since the patient previously complained of myopathy when taking atorvastatin. Prior to discharge, his dose of rosuvastatin was increased to 10 mg per day per the recommendations from the Stroke Prevention by Aggressive Reduction in Cholesterol Levels (SPARCL) trial. Physical Exam Vital Signs: Temp Pulse Resp BP Pulse Ox 99.1 F 85 20 103/48 L 97 12/13/17 18:13 12/13/17 18:13 12/13/17 18:13 12/13/17 18:13 12/13/17 18:13 Intake & Output 12/13/17 12/14/17 12/15/17 06:59 06:59 06:59 Intake Total 2370 1157 Output Total 1300 Balance 1070 1157 Weight 129 kg Results Laboratory Results: 12/13/17 06:17 12/13/17 06:17 Impressions: Chest X-Ray 12/11/17 00:00 IMPRESSION: NO ACUTE RADIOGRAPHIC FINDING IN THE CHEST. Head CT 12/11/17 00:00 IMPRESSION: MILD CHRONIC CHANGES OF ATROPHY AND MICROVASCULAR ISCHEMIA. NO ACUTE PROCESS. EVIDENCE OF ACUTE STROKE: NO. Brain MRI with MRA 12/12/17 00:00 IMPRESSION: NORMAL MRA OF THE [place] OF [place]. Head MRI 12/12/17 00:00 IMPRESSION: NORMAL MRI OF THE BRAIN WITHOUT AND WITH INTRAVENOUS GADOLINIUM CONTRAST. EVIDENCE OF ACUTE STROKE: NO. Carotid Doppler Study 12/13/17 00:00 IMPRESSION: NO HEMODYNAMICALLY SIGNIFICANT STENOSIS. Venous Doppler Study 12/13/17 17:48 IMPRESSION: NO EVIDENCE DVT OR SVT IN THE RIGHT LEG. Status: Imported from PACS Qualifiers - * PATIENT BEING DISCHARGED WITH ANY OF THE FOLLOWING DIAGNOSIS: No Plan Discharge Plan: Discharge home with 10 day course of doxycycline and amoxicillin for cellulitis in the RLE. Continue all home dose medications, increased dose of rosuvastatin from 5 mg to 10 mg for stroke prevention Time Spent: Less than 30 Minutes <SARATH MORALES - Last Filed: 12/14/17 15:26> General - Admit/Disc Date/PCP Admission Date/Primary Care Provider: 12/11/17 23:00 History of Present Illness History of Present Illness: KEILA VIEYRA is a 72 year old male Physical Exam Vital Signs: Temp Pulse Resp BP Pulse Ox 99.1 F 85 20 103/48 L 97 12/13/17 18:13 12/13/17 18:13 12/13/17 18:13 12/13/17 18:13 12/13/17 18:13 Intake & Output 12/13/17 12/14/17 12/15/17 06:59 06:59 06:59 Intake Total 2370 1157 Output Total 1300 Balance 1070 1157 Weight 129 kg Results Laboratory Results: 12/13/17 06:17 12/13/17 06:17 Impressions: Chest X-Ray 12/11/17 00:00 IMPRESSION: NO ACUTE RADIOGRAPHIC FINDING IN THE CHEST. Head CT 12/11/17 00:00 IMPRESSION: MILD CHRONIC CHANGES OF ATROPHY AND MICROVASCULAR ISCHEMIA. NO ACUTE PROCESS. EVIDENCE OF ACUTE STROKE: NO. Brain MRI with MRA 12/12/17 00:00 IMPRESSION: NORMAL MRA OF THE [place] OF [place]. Head MRI 12/12/17 00:00 IMPRESSION: NORMAL MRI OF THE BRAIN WITHOUT AND WITH INTRAVENOUS GADOLINIUM CONTRAST. EVIDENCE OF ACUTE STROKE: NO. Carotid Doppler Study 12/13/17 00:00 IMPRESSION: NO HEMODYNAMICALLY SIGNIFICANT STENOSIS. Venous Doppler Study 12/13/17 17:48 IMPRESSION: NO EVIDENCE DVT OR SVT IN THE RIGHT LEG. Plan Discharge Plan: Co signing the note for Cande Tamayo NP.
== END 2017-12-13 18:48 | disposition home or self-care (01) | DRG 872 ==
LOC: ER 20:09 → EH 23:00 → 3S 12-12 01:02
PROVIDERS: ADMIT Internal Medicine; ATTEND Internal Medicine
DX: A41.9 Sepsis, unspecified organism (principal); L03.115 Cellulitis of right lower limb; I10 Essential (primary) hypertension; J44.9 Chronic obstructive pulmonary disease, unspecified; G45.4 Transient global amnesia; E11.9 Type 2 diabetes mellitus without complications; E78.5 Hyperlipidemia, unspecified; E66.9 Obesity, unspecified; R41.82 Altered mental status, unspecified; R47.9 Unspecified speech disturbances; B95.1 Streptococcus, group B, as the cause of diseases classified elsewhere; M19.90 Unspecified osteoarthritis, unspecified site; Z68.39 Body mass index [BMI] 39.0-39.9, adult; Z79.84 Long term (current) use of oral hypoglycemic drugs; Z90.49 Acquired absence of other specified parts of digestive tract; Z83.3 Family history of diabetes mellitus; Z82.49 Family history of ischemic heart disease and other diseases of the circulatory system
CPT/HCPCS: 36415; 70450; 70544; 70553; 71045; 80048; 80053; 82550; 82553; 82803; 82962; 83605; 84484; 85025; 85610; 85730; 87040; 87070; 87075; 87077; 87205; 93005; 93010; 93880; 93971; 96365; 96367; 99291; A9577; J1650; J1815; J2543; J3360; J3370; J3490; J7060

== ENCOUNTER → 2018-01-13 | Outpatient (CLI) | payer MEDICARE ==
--- NOTE | 2018-01-13 14:57 | RADIOLOGY REPORT (SQ) ---
EXAM DESCRIPTION: TIBIA FIBULA RIGHT COMPLETED DATE/TIME: 01/13/2018 1:58 pm REASON FOR STUDY: NON-PRESSURE CHRONIC ULCER OF RIGHT CALF W FAT LAYER EXPOSED (L97.212) L97.212 NO N-PRESSURE CHRONIC ULCER OF RIGHT CALF W FAT LAYER COMPARISON: None. NUMBER OF VIEWS: Two views. TECHNIQUE: Two radiographic images acquired of the right tibia and fibula to include the knee and an kle in at least one projection. LIMITATIONS: None. FINDINGS: MINERALIZATION: Normal. BONES: No acute fracture or dislocation. No worrisome bone lesions. SOFT TISSUES: Mild pretibial soft tissue swelling over the lower 3rd of the right lower leg. Bandage with small ulceration is present. Multiple tiny foci of fat necrosis with peripheral rim calcificat ion in the pretibial soft tissues elsewhere. There is subcutaneous edema throughout the lower leg fr om cellulitis. OTHER: No other significant finding. IMPRESSION: No bony changes are fracture. Pretibial soft tissue swelling with small ulcer. Diffuse right lower leg subcutaneous edema from anel lulitis TECHNICAL DOCUMENTATION: JOB ID: [id number] [employer]- All Rights Reserved Reading location - IP/workstation name: [email or web address]
[2018-01-13 15:04] LABS: ABSOLUTE BASOPHILS # (AUTO) 0.1 10^3/uL (0.0-0.2); ABSOLUTE EOSINOPHILS # (AUTO) 0.2 10^3/uL (0.0-0.6); ABSOLUTE LYMPHOCYTES (AUTO) 3.6 10^3/uL (0.5-4.7); ABSOLUTE NEUT (AUTO) 7.5 10^3/uL (1.7-8.2); BASOPHILS % (AUTO) 0.5 % (0-2); EOSINOPHILS % (AUTO) 1.3 % (0-6); HEMATOCRIT 41.4 % (37.9-51.0); HEMOGLOBIN 13.7 g/dL (13.5-17.0); LYMPHOCYTES % (AUTO) 29.2 % (13-45); MEAN CORPUSCULAR HGB CONC 33.1 g/dL (32.0-36.0); MEAN CORPUSCULAR VOLUME 94 fl (80-97); MONOCYTES % (AUTO) 8.2 % (3-13); PLATELET COUNT 205 10^3/uL (150-450); RED BLOOD COUNT 4.42 10^6/uL (4.35-5.55); RED CELL DISTRIBUTION WIDTH 14.6 % (11.5-14.0); SEGMENTED NEUTROPHILS % (AUTO) 60.8 % (42-78); TOTAL CELLS COUNTED % (AUTO) 100 %; WHITE BLOOD COUNT 12.3 10^3/uL (4.0-10.5)
[2018-01-13 15:43] LABS: ALANINE AMINOTRANSFERASE 17 U/L (21-72); ALBUMIN 4.3 g/dL (3.5-5.0); ALKALINE PHOSPHATASE 63 U/L (38-126); ANION GAP 12 (5-19); ASPARTATE AMINO TRANSFERASE 17 U/L (17-59); BILIRUBIN,DIRECT 0.4 mg/dL (0.0-0.4); BILIRUBIN,TOTAL 0.4 mg/dL (0.2-1.3); BLOOD UREA NITROGEN 19 mg/dL (7-20); CALCIUM 9.7 mg/dL (8.4-10.2); CARBON DIOXIDE 29 mmol/L (22-30); CHLORIDE 104 mmol/L (98-107); ERYTHROCYTE SEDIMENTATION RATE 57 mm/hr (0-20); GLUCOSE 98 mg/dL (75-110); POTASSIUM 4.7 mmol/L (3.6-5.0); SODIUM 144.5 mmol/L (137-145); TOTAL PROTEIN 7.3 g/dL (6.3-8.2)
[2018-01-13 15:52] LABS: C-REACTIVE PROTEIN < 5.0 mg/L (<10.0)
--- NOTE | 2018-01-16 13:20 | XCELERA REPORT ---
[address] [address] Lower Extremity Arterial Evaluation Name: KEILA VIEYRA Age: 72 yrs Gender: Male : 1945 Patient Status: Outpatient Patient Location: Study Date: 01/13/2018 02:11 PM Procedure: A color flow and duplex scan of the lower extremity arteries was performed bilaterally with velocity and waveform anaylsis. Ankle brachial indicies performed. 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 0-19% stenosis at the Femoral artery. Ankle Brachial index not done due to wound. Left Side Arterial Evaluation Normal velocity and triphasic waveforms noted from the Common Femoral artery to the infrageniculate vessels. Reversal of flow at the Dorsalis Pedis 0-19% stenosis at the Dorsalis Pedis artery. Ankle Brachial index is 1.00. Interpretation Summary No hemodynamically significant lesions in the right lower extremity only, on duplex imaging, at rest. Mild hemodynamically significant lesions in the left lower extremity only, on duplex imaging, at rest. : JOSE LOPEZ > Brandon Donaldson
== END ==
LOC: SP 13:23
PROVIDERS: ATTEND Nurse Practitioner
DX: E11.621 Type 2 diabetes mellitus with foot ulcer (principal); L97.212 Non-pressure chronic ulcer of right calf with fat layer exposed
CPT/HCPCS: 36415; 80053; 83036; 85025; 85652; 86140; 93925

== ENCOUNTER → 2019-01-20 | Outpatient (CLI) | payer MEDICARE ==
--- NOTE | 2019-01-20 10:28 | RADIOLOGY REPORT (SQ) ---
EXAM DESCRIPTION: CT CHEST WITHOUT COMPLETED DATE/TIME: 01/20/2019 8:44 am REASON FOR STUDY: J44.9 CHRONIC OBSTRUCTIVE PULMONARY DISEASE, UNSPECIFIED J44.9 CHRONIC OBSTRUCTIV E PULMONARY DISEASE, UNSPECIFIED R05 COUGH R06.09 OTHER FORMS OF DYSPNEA COMPARISON: None. TECHNIQUE: CT scan performed of the chest without intravenous contrast. Images reviewed with lung, soft tissue and bone windows. Reconstructed coronal and sagittal MPR images reviewed. All images st ored on PACS. All CT scanners at this facility use dose modulation, iterative reconstruction, and/or weight based d osing when appropriate to reduce radiation dose to as low as reasonably achievable (ALARA). [facility]: Dose Right [facility]: CareDose [facility]: Dose Right [facility]: Teradose 4D [facility]: NHK World RADIATION DOSE: CT Rad equipment meets quality standard of care and radiation dose reduction techniq ues were employed. CTDIvol: 16.1 mGy. DLP: 675 mGy-cm. mGy. LIMITATIONS: No technical limitations. FINDINGS: LUNGS AND PLEURA: No masses, infiltrates, or pneumothorax. Minimal linear parenchymal sca rring. No pleural effusions or pleural calcifications. HILAR AND MEDIASTINAL STRUCTURES: No identified masses or abnormal nodes. No obvious aneurysm. HEART AND VASCULAR STRUCTURES: No aneurysm. No pericardial effusion. UPPER ABDOMEN: No significant findings. Limited exam. THYROID AND OTHER SOFT TISSUES: No masses. No adenopathy. BONES: No significant finding. HARDWARE: None in the chest. OTHER: No other significant findings. IMPRESSION: MINIMAL LINEAR PARENCHYMAL SCARRING. OTHERWISE NO SIGNIFICANT FINDING ON NON-CONTRASTED CHEST CT. TECHNICAL DOCUMENTATION: JOB ID: [id number] Quality ID # [id number]: Final reports with documentation of one or more dose reduction techniques (e.g., Au tomated exposure control, adjustment of the mA and/or kV according to patient size, use of iterative reconstruction technique) 2010 [employer]- All Rights Reserved Reading location - IP/workstation name: [email or web address]
== END ==
LOC: RAD 08:22
PROVIDERS: ATTEND Internal Medicine Critical Care Medicine
DX: J44.9 Chronic obstructive pulmonary disease, unspecified (principal); R05 Cough; R06.09 Other forms of dyspnea
CPT/HCPCS: 71250

== ENCOUNTER 2019-05-12 19:29 | Observation (INO) | payer MEDICARE ==
--- NOTE | 2019-05-12 21:22 | ER Document Report ---
ED Dizziness/Weakness - General Chief Complaint: General Weakness Stated Complaint: GENERALIZED WEAKNESS Primary Care Provider: TAQUERIA VEE MD [ACTIVE STAFF] - Follow up as needed Information source: Patient TRAVEL OUTSIDE OF THE [place] IN LAST 30 DAYS: No - HPI Patient complains to provider of: Other - Patient claims that earlier today he had trouble finding words however was able to receive words without difficulty he denies any chest pain shortness of breath headache blurred vision weakness numbness in arms or legs trouble walking dizziness or other complaints he says s deja this afternoon those have completely resolved he does take a baby aspirin a day. No: Altered mental status, Dizziness, Near-syncope, Syncope, Vertigo, Weakness - Related Data Allergies/Adverse Reactions: No Known Allergies Allergy (Verified 12/11/17 20:10) Home Medications: see sheet on table for now Past Medical History - Social History Smoking Status: Current Every Day Smoker Family History: Reviewed & Not Pertinent, DM, Hypertension Patient has suicidal ideation: No Patient has homicidal ideation: No - Past Medical History Cardiac Medical History: Reports: Hx Hypercholesterolemia, Hx Hypertension Denies: Hx Coronary Artery Disease, Hx Heart Attack Pulmonary Medical History: Reports: Hx COPD Denies: Hx Asthma, Hx Bronchitis, Hx Pneumonia Neurological Medical History: Denies: Hx Cerebrovascular Accident, Hx Seizures Endocrine Medical History: Reports: Hx Diabetes Mellitus Type 2 Renal/ Medical History: Denies: Hx Peritoneal Dialysis Musculoskeletal Medical History: 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, right hip, bilat hands more so right hand Past Surgical History: Reports: Hx Appendectomy, Hx Thyroid Surgery - Immunizations Immunizations up to date: No Hx Diphtheria, Pertussis, Tetanus Vaccination: No Hx Pneumococcal Vaccination: 12/12/17 Review of Systems - Review of Systems Constitutional: denies: No symptoms reported, See HPI, Chills, Diaphoresis, Fever, Malaise, Weakness, Other, Weight gain, Weight loss, Recent illness Cardiovascular: denies: No symptoms reported, See HPI, Chest pain, Palpitations, Heart racing, Orthopnea, Dyspnea, Syncope, Dizziness, Lightheaded, Edema, Other, Paroxysmal Nocturnal Dysp Gastrointestinal: denies: No symptoms reported, See HPI, Abdomen distended, Abdominal pain, Diarrhea, Nausea, Vomiting, Constipation, Blood streaked bowels, Poor appetite, Poor fluid intake, Blood in vomit, Black stools, Rectal bleeding, Last bowel movement, Fecal incontinence, Other Genitourinary: denies: No symptoms reported, See HPI, Burning, Dysuria, Discharge, Frequency, Flank pain, Hematuria, Incontinence, Pain, Urgency, Retention, Other Neurological/Psychological: Speech impairment. denies: No symptoms reported, See HPI, Confusion, Dementia, Depression, Hallucinations, Anxiety, Homicidal ideation, Sensory change, Weakness, Gait changes, Loss of power, Paralysis, Seizure, Lost consciousness, Headaches, Numbness, Suicidal ideation, Tingling, Tremor, Other -: Yes All other systems reviewed and negative Physical Exam - Vital signs Vitals: Pulse Ox 94 05/12/19 19:51 Notes: PHYSICAL EXAMINATION: GENERAL: Well-appearing, well-nourished and in no acute distress. HEAD: Atraumatic, normocephalic. EYES: Pupils equal round and reactive to light, extraocular movements intact, sclera anicteric, conjunctiva are normal. ENT: nares patent, oropharynx clear without exudates. Moist mucous membranes. NECK: Normal range of motion, supple without lymphadenopathy LUNGS: Breath sounds clear to auscultation bilaterally and equal. No wheezes rales or rhonchi. HEART: Regular rate and rhythm without murmurs ABDOMEN: Soft, nontender, normoactive bowel sounds. No guarding, no rebound. No masses appreciated. EXTREMITIES: Normal range of motion, no pitting or edema. No cyanosis. NEUROLOGICAL: No focal neurological deficits. Moves all extremities spontaneously and on command. N IHSS scale is 0. PSYCH: Normal mood, normal affect. SKIN: Warm, Dry, normal turgor, no rashes or lesions noted. Course - Vital Signs Vital signs: Temp Pulse Resp BP Pulse Ox 98.6 F 25 H 123/75 94 05/13/19 00:01 05/13/19 00:01 05/13/19 00:01 05/13/19 00:01 - Laboratory Result Diagrams: 05/12/19 21:35 05/12/19 21:35 Laboratory results interpreted by me: 05/12/19 05/12/19 05/12/19 21:35 21:35 21:45 WBC 24.5 H RDW 14.1 H Seg Neuts % (Manual) 79 H Band Neutrophils % 6 H Lymphocytes % (Manual) 7 L Abs Neuts (Manual) 20.8 H Abs Monocytes (Manual) 2.0 H BUN 22 H Glucose 153 H Urine Protein 30 H Urine Ketones TRACE H Urine Blood SMALL H Urine Urobilinogen 2.0 H - Diagnostic Test Radiology reviewed: Image reviewed, Reports reviewed Discharge - Discharge Clinical Impression: Pneumonia Qualifiers: Pneumonia type: due to unspecified organism Laterality: bilateral Lung location: unspecified part of lung Qualified Code(s): J18.9 - Pneumonia, unspecified organism Condition: Good Disposition: ADMITTED INPATIENT Admitting Provider: Kayla (Hospitalist) Unit Admitted: Medical Floor Referrals: TAQUERIA VEE MD [ACTIVE STAFF] - Follow up as needed
--- NOTE | 2019-05-12 21:36 | RADIOLOGY REPORT (SQ) ---
EXAM DESCRIPTION: RadLex: CT HEAD WITHOUT IV CONTRAST CLINICAL HISTORY: 74 years Male; tia TECHNIQUE: Noncontrast CT head. All CT scans at this facility use dose modulation, iterative reconstruction, and/or weight based dosing when appropriate to reduce radiation dose to as low as reasonably achievable. COMPARISON: MRI 12/12/2017 FINDINGS: Atrophy is similar to the prior exam. No acute hemorrhage or mass effect. Visualized portions of paranasal sinuses and mastoids are clear. Visualized portions of the calvarium are within normal limits. IMPRESSION: 1. No acute intracranial findings. 2. Atrophy as on prior exam.
[2019-05-12 21:48] LABS: HEMATOCRIT 46.2 % (37.9-51.0); HEMOGLOBIN 15.1 g/dL (13.5-17.0); MEAN CORPUSCULAR HEMOGLOBIN 30.7 pg (27.0-33.4); MEAN CORPUSCULAR HGB CONC 32.6 g/dL (32.0-36.0); MEAN CORPUSCULAR VOLUME 94 fl (80-97); PLATELET COUNT 166 10^3/uL (150-450); RED BLOOD COUNT 4.91 10^6/uL (4.35-5.55); RED CELL DISTRIBUTION WIDTH 14.1 % (11.5-14.0); WHITE BLOOD COUNT 24.5 10^3/uL (4.0-10.5)
[2019-05-12 21:59] LABS: INTERNATIONAL RATION (INR) 1.11; PROTHROMBIN TIME 14.4 SEC (11.4-15.4)
[2019-05-12 22:02] LABS: APPEARANCE,URINE SLIGHTLY-CLOUDY; BILIRUBIN,URINE NEGATIVE (NEGATIVE); COLOR,URINE YELLOW; GLUCOSE, URINE NEGATIVE (NEGATIVE); KETONES,URINE TRACE mg/dL (NEGATIVE); LEUKOCYTE ESTERASE,URINE NEGATIVE (NEGATIVE); NITRITE,URINE NEGATIVE (NEGATIVE); PROTEIN,URINE 30 mg/dL (NEGATIVE); URINE SPECIFIC GRAVITY 1.023
[2019-05-12 22:06] LABS: ALKALINE PHOSPHATASE 63 U/L (38-126); ANION GAP 11 (5-19); ASPARTATE AMINO TRANSFERASE 27 U/L (17-59); BILIRUBIN,DIRECT 0.2 mg/dL (0.0-0.4); BILIRUBIN,TOTAL 0.7 mg/dL (0.2-1.3); BLOOD UREA NITROGEN 22 mg/dL (7-20); CALCIUM 9.1 mg/dL (8.4-10.2); CARBON DIOXIDE 24 mmol/L (22-30); CHLORIDE 102 mmol/L (98-107); GLUCOSE 153 mg/dL (75-110); POTASSIUM 4.3 mmol/L (3.6-5.0); TOTAL PROTEIN 6.9 g/dL (6.3-8.2)
[2019-05-12 22:11] LABS: ABSOLUTE LYMPHOCYTES# (MANUAL) 1.7 10^3/uL (0.5-4.7); ANISOCYTOSIS SLIGHT; BAND NEUTROPHILS % (MANUAL) 6 % (3-5); BASOPHILS % (MANUAL) 0 % (0-2); EOSINOPHILS % (MANUAL) 0 % (0-6); LYMPHOCYTES % (MANUAL) 7 % (13-45); MONOCYTES % (MANUAL) 8 % (3-13); PLATELET COMMENT ADEQUATE; SEGMENTED NEUTROPHILS % (MAN) 79 % (42-78); TOTAL CELLS COUNTED 100
--- NOTE | 2019-05-12 23:49 | RADIOLOGY REPORT (SQ) ---
CLINICAL HISTORY: COUGH COMPARISON: None. TECHNIQUE: XR CHEST 1 VIEW 05/12/2019 10:48 PM CDT FINDINGS: The heart is mildly enlarged. There is mild bibasilar atelectasis. There is no pleural effusion. There is no pneumothorax. There are no acute osseous findings. IMPRESSION: Mild bibasilar atelectasis.
[2019-05-12] MEDS ORDERED: CEFTRIAXONE 2 GM/D5W RTU 2 GM/50 ML RTUPB IV ONE (23:51)
[2019-05-12] MEDS ORDERED: AZITHROMYCIN INJ 500 MG VIAL IV ONE (23:51)
[2019-05-13] MEDS ORDERED: LEVALBUTEROL HCL NEB 0.63 MG/3 ML AMPUL NEB PRN (02:55)
[2019-05-13] MEDS ORDERED: RINGERS SOLUTION,LACTATED 1,000 ML IV PRN (03:01)
[2019-05-13] MEDS ORDERED: GUAIFENESIN SYRP 200 MG/10 ML UDC PO PRN (03:01)
[2019-05-13] MEDS ORDERED: ACETAMINOPHEN 325 MG TABLET PO PRN (03:01)
[2019-05-13] MEDS ORDERED: DEXTROSE 40% GEL 15 GM TUBE PO PRN ×2 (03:18)
[2019-05-13] MEDS ORDERED: INSULIN REG, HUMAN 100 UNIT/ML 3 ML VIAL (PYX) SUBCUT PRN (03:18)
[2019-05-13] MEDS ORDERED: DEXTROSE 50%-WATER 25 GM/50 ML DISP.SYRIN IV PRN ×2 (03:18)
[2019-05-13] MEDS ORDERED: GLUCAGON,HUMAN RECOMB 1 MG INJ IM PRN (03:18)
[2019-05-13 04:13] LABS: FREE T3 2.7 pg/mL (2.77-5.27); FREE T4 (FREE THYROXINE) 1.4 ng/dL (0.78-2.19)
[2019-05-13] MEDS: HEPARIN SOD (PORCINE) 5,000 UNIT/ML 1 ML VIAL SUBCUT SCH ×3 (05:48→21:36)
[2019-05-13] MEDS: METHYLPREDNISOLONE INJ 40 MG/1 ML SDV IV SCH ×3 (05:48→17:52)
[2019-05-13] MEDS: LEVOTHYROXINE SODIUM 0.075 MG TABLET PO SCH (05:54)
[2019-05-13] MEDS: LEVOTHYROXINE SODIUM 0.1 MG TABLET PO SCH (05:57)
--- NOTE | 2019-05-13 06:39 | PDOC H&P ---
History of Present Illness Admission Date/PCP: 05/13/2019 02:20 JADE CORNEJO MD Patient complains of: Generalized weakness History of Present Illness: KEILA VIEYRA is a 74 year old male who presented to the emergency room with acute generalized weakness. Patient admits that he suddenly startled awake from sleep last evening and found himself having a tremor/chills with rigor, a transient pain in the back of his head, expressive aphasia and generalized weakness. His weakness has been accompanied by dyspnea worsened by exertion. He denies other associated or accompanying signs and symptoms. His expressive aphasia resolved within an hour and the pain in the back of his head lasted only for a minute or so. He denies any further chills or tremors but his generalized weakness and dyspnea persist. He admits 1 prior similar episode. He has not identified any aggravating or ameliorating factors for his generalized weakness. In the emergency room he was found to have an elevated white blood count 24,500 and bibasilar atelectasis on his chest x-ray which most likely reflects interstitial pneumonitis. A CT scan of his head was negative for acute changes and the remainder of his laboratory evaluation was unremarkable. He was subsequently admitted to the hospital for further evaluation and treatment on the telemetry floor. Past Medical History Cardiac Medical History: Reports: Congestive Heart Failure, Hyperlipidema, Hypertension Denies: Atrial Fibrillation, Coronary Artery Disease, Myocardial Infarction Pulmonary Medical History: Reports: Chronic Obstructive Pulmonary Disease (COPD) Denies: Asthma, Bronchitis, Pneumonia EENT Medical History: Denies: Cataracts, Ears - Hearing aids Neurological Medical History: Reports: Other - TIA Denies: Hemorrhagic CVA, Ischemic CVA, Seizures Endocrine Medical History: Reports: Diabetes Mellitus Type 2, Hypothyroidism, Obesity Denies: Diabetes Mellitus Type 1, Hyperthyroidism Renal/ Medical History: Reports: Other - Benign prostatic hyperplasia Denies: Chronic Kidney Disease, Nephrolithiasis Malignancy Medical History: Reports: None GI Medical History: Denies: Cirrhosis, Hepatitis Musculoskeltal Medical History: Reports: Arthritis - spine, right hip, bilat hands more so right hand Denies: Gout Skin Medical History: Denies: Eczema, Psoriasis Psychiatric Medical History: Reports: Tobacco Dependency Denies: Alcohol Dependency, Substance Abuse Traumatic Medical History: Reports: None Hematology: Denies: Anemia, Bleeding Tendencies Infectious Medical History: Reports: None Past Surgical History Past Surgical History: Reports: Appendectomy Social History Information Source: Patient Lives with: Spouse/Significant other Smoking Status: Current Every Day Smoker Electronic Cigarette use?: No Frequency of Alcohol Use: None Hx Recreational Drug Use: No Drugs: None Hx Prescription Drug Abuse: No - Advance Directive Resuscitation Status: Full Code Surrogate healthcare decision maker:: Jacquelyn Vieyra Family History Family History: DM, Hypertension Parental Family History Reviewed: Yes Children Family History Reviewed: No Sibling(s) Family History Reviewed.: Yes Medication/Allergy Home Medications: Aspirin [Adult Low Dose Aspirin EC] 81 mg PO DAILY 04/28/16 Tamsulosin HCl [Flomax] 0.8 mg PO DAILY 04/28/16 Benazepril/Hydrochlorothiazide [Benazepril-Hctz 10-12.5 mg Tab] 1 each PO QAM 12/12/17 Cholecalciferol (Vitamin D3) [Vitamin D3 5000 unit Capsule] 5,000 unit PO DAILY 12/12/17 Furosemide [Lasix 20 mg Tablet] 20 mg PO QAMP PRN 12/12/17 Levothyroxine Sodium [Synthroid] 175 mcg PO QAM 12/12/17 Metformin HCl [Metformin HCl ER] 2,000 mg PO DAILY 12/12/17 Metoprolol Tartrate [Lopressor 25 mg Tablet] 25 mg PO BID 12/12/17 Mirtazapine [Remeron] 30 mg PO DAILYP PRN 12/12/17 Nitroglycerin [Nitrostat 0.4 mg (1/150 Gr) Tabs 25/Bottle] 1 tab SL Q5MP PRN 12/12/17 Oxycodone HCl/Acetaminophen [Oxycodon-Acetaminophen 7.5-325] 1 each PO Q8HP PRN 12/12/17 Tiotropium [place] [Spiriva Handihaler 18 mcg/dose (30 Dose)] 18 mcg IH DAILYP PRN 12/12/17 Tramadol HCl [Ultram 50 mg Tablet] 50 mg PO BIDP PRN 12/12/17 Trazodone HCl [Desyrel 50 mg Tablet] 50 mg PO QHS 12/12/17 Rosuvastatin Calcium 10 mg PO QHS #30 tablet 12/13/17 Oxycodone HCl/Acetaminophen [Percocet 5-325 mg Tablet] 1 tab PO ASDIR PRN #15 tab 01/18/18 Sulfamethoxazole/Trimethoprim [Sulfamethoxazole-Tmp Ds Tablet] 1 each PO BID 01/18/18 Allergies/Adverse Reactions: No Known Allergies Allergy (Verified 12/11/17 20:10) Review of Systems Constitutional: PRESENT: as per HPI, chills, headache(s), weakness - Generalized weakness. ABSENT: fever(s) Eyes: ABSENT: visual disturbances, other - Eye pain Ears: ABSENT: hearing changes, other - Ear pain Nose, Mouth, and Throat: PRESENT: as per HPI, headache(s). ABSENT: mouth pain, sore throat Cardiovascular: PRESENT: dyspnea on exertion. ABSENT: chest pain, palpitations Respiratory: PRESENT: dyspnea. ABSENT: cough, sputum Gastrointestinal: ABSENT: abdominal pain, constipation, diarrhea, nausea, vomiting Genitourinary: ABSENT: dysuria, hematuria Musculoskeletal: ABSENT: back pain, joint swelling, muscle weakness Integumentary: ABSENT: pruritus, rash Neurological: PRESENT: as per HPI, tremor(s), other - Transient expressive aphasia episode. ABSENT: confusion, convulsions - Is noticeably, focal weakn ess, memory loss, syncope Psychiatric: ABSENT: anxiety, depression Endocrine: ABSENT: cold intolerance, heat intolerance Hematologic/Lymphatic: ABSENT: easy bleeding, easy bruising Allergic/Immunologic: ABSENT: seasonal rhinorrhea Physical Exam Vital Signs: Temp Pulse Resp BP Pulse Ox 98.6 F 25 H 123/75 94 05/13/19 00:01 05/13/19 00:01 05/13/19 00:01 05/13/19 00:01 Intake & Output 05/11/19 05/12/19 05/13/19 23:59 23:59 23:59 Intake Total 50 Balance 50 Weight 125.191 kg General appearance: PRESENT: no acute distress, cooperative, obese Head exam: PRESENT: atraumatic, normocephalic Eye exam: PRESENT: conjunctiva pink. ABSENT: conjunctival injection, scleral icterus Ear exam: PRESENT: normal external ear exam. ABSENT: bleeding, drainage Mouth exam: PRESENT: dry mucosa, neck supple Neck exam: ABSENT: thyromegaly, tracheal deviation Respiratory exam: PRESENT: prolonged expiratory phas - Mildly prolonged expiratory phase throughout all juan, rhonchi - Scattered coarse rhonchi throughout the chest, symmetrical, tachypnea, wheezes - Minimal expiratory wheezes throughout all juan Cardiovascular exam: PRESENT: RRR - With frequent irregular beats. ABSENT: clicks, gallop, rubs Pulses: PRESENT: normal radial pulses, normal dorsalis pedis pul Vascular exam: PRESENT: normal capillary refill. ABSENT: pallor GI/Abdominal exam: PRESENT: normal bowel sounds, soft. ABSENT: tenderness Rectal exam: PRESENT: deferred Extremities exam: ABSENT: joint swelling, pedal edema Musculoskeletal exam: PRESENT: ambulatory. ABSENT: deformity, dislocation Neurological exam: PRESENT: alert, oriented to person, oriented to place, oriented to time, oriented to situation, CN II-XII grossly intact. ABSENT: mot or sensory deficit, aphasic Psychiatric exam: PRESENT: appropriate affect, normal mood Skin exam: PRESENT: dry, intact, warm. ABSENT: jaundice, rash, urticaria Results Laboratory Results: 05/12/19 21:35 05/12/19 21:35 05/12/19 05/12/19 05/12/19 21:35 21:35 21:45 WBC 24.5 H RBC 4.91 Hgb 15.1 Hct 46.2 MCV 94 MCH 30.7 MCHC 32.6 RDW 14.1 H Plt Count 166 Seg Neutrophils % Not Reportable Sodium 137.3 Potassium 4.3 Chloride 102 Carbon Dioxide 24 Anion Gap 11 BUN 22 H Creatinine 1.10 Est GFR ( Amer) > 60 Glucose 153 H Lactic Acid Calcium 9.1 Total Bilirubin 0.7 AST 27 Alkaline Phosphatase 63 Total Protein 6.9 Albumin 4.0 Urine Color YELLOW Urine Appearance SLIGHTLY-CLOUDY Urine pH 5.0 Ur Specific [place] 1.023 Urine Protein 30 H Urine Glucose (UA) NEGATIVE Urine Ketones TRACE H Urine Blood SMALL H Urine Nitrite NEGATIVE Ur Leukocyte Esterase NEGATIVE Urine WBC (Auto) 3 Urine RBC (Auto) 2 05/13/19 00:34 WBC RBC Hgb Hct MCV MCH MCHC RDW Plt Count Seg Neutrophils % Sodium Potassium Chloride Carbon Dioxide Anion Gap BUN Creatinine Est GFR ( Amer) Glucose Lactic Acid 1.2 Calcium Total Bilirubin AST Alkaline Phosphatase Total Protein Albumin Urine Color Urine Appearance Urine pH Ur Specific [place] Urine Protein Urine Glucose (UA) Urine Ketones Urine Blood Urine Nitrite Ur Leukocyte Esterase Urine WBC (Auto) Urine RBC (Auto) 05/12/19 21:35 Troponin I 0.024 Impressions: Head CT 05/12/19 20:48 IMPRESSION: 1. No acute intracranial findings. 2. Atrophy as on prior exam. Chest X-Ray 05/12/19 22:48 IMPRESSION: Mild bibasilar atelectasis. Assessment and Plan - Diagnosis (1) COPD (chronic obstructive pulmonary disease) Qualifiers: COPD type: COPD with acute exacerbation Qualified Code(s): J44.1 - Chronic obstructive pulmonary disease with (acute) exacerbation Is this a current diagnosis for this admission?: Yes Plan: Patient be treated with an aggressive pulmonary toilet utilizing nebulized Xopenex, Pulmicort and Atrovent. He will also receive IV Solu-Medrol and supplemental oxygen if required to maintain an O2 sat greater than 93%. Patient's O2 sat will be monitored closely throughout the hospital course. (2) Mild bibasilar atelectasis Is this a current diagnosis for this admission?: Yes Plan: Patient's mild bibasilar atelectasis may well reflect a bibasilar interstitial pneumonitis and as such will be treated with Levaquin 750 mg p.o. daily after receiving initial IV dose. (3) Hypertension Qualifiers: Hypertension type: essential hypertension Qualified Code(s): I10 - Essential (primary) hypertension Is this a current diagnosis for this admission?: Yes Plan: Patient be continued on his usual antihypertensive regimen with changes made only as required. Blood pressure will be evaluated frequently with vital signs throughout his hospital course. He will be maintained on a cardiac diet. (4) HLD (hyperlipidemia) Qualifiers: Hyperlipidemia type: unspecified Qualified Code(s): E78.5 - Hyperlipidemia, unspecified Is this a current diagnosis for this admission?: Yes Plan: Patient's current lipid therapeutic regiment will be continued. A lipid profile will be obtained. Changes will be made to the patient's lipid therapy only if required. He will be maintained on a cardiac diet. (5) Leukocytosis Qualifiers: Leukocytosis type: unspecified Qualified Code(s): D72.829 - Elevated white blood cell count, unspecified Is this a current diagnosis for this admission?: Yes Plan: Patient's leukocytosis will be monitored with daily CBCs. (6) Diabetes mellitus type 2 in obese Is this a current diagnosis for this admission?: Yes Plan: Patient will be continued on his usual diabetic regiment and a diabetic diet. Hemoglobin A1c will be obtained to evaluate the efficacy of his current therapy. Before meals and at bedtime Accu-Cheks will be obtained with hyperglycemia treated with sliding scale insulin and a hypoglycemic protocol in place. (7) Hypothyroidism Qualifiers: Hypothyroidism type: unspecified Qualified Code(s): E03.9 - Hypothyroidism, unspecified Is this a current diagnosis for this admission?: Yes Plan: A thyroid profile will be obtained to assess the efficacy of the patient's current therapy. Patient will be continued on his usual thyroid replacement regimen. (8) TIA (transient ischemic attack) Is this a current diagnosis for this admission?: Yes Plan: The patient recently had a complete evaluation for TIAs and is taking aspirin. Consideration to place the patient on a more aggressive antiplatelet therapy will be entertained by the patient's daytime hospitalist. - Time Time Spent with patient: 25-34 minutes Smoking Cessation Education: 3 to 10 minutes Medications reviewed and adjusted accordingly: Yes Anticipated discharge: Home - Inpatient Certification Based on my medical assessment, after consideration of the patient's comorbidities, presenting symptoms, or acuity I expect that the services needed warrant INPATIENT care.: Yes I certify that my determination is in accordance with my understanding of Medicare's requirements for reasonable and necessary INPATIENT services [42 CFR 412.3e].: Yes Medical Necessity: Need Close Monitoring Due to Risk of Patient Decompensation, Need For Continuous Telemetry Monitoring, Need for Nebulizer Therapy and Monitoring of Response, Risk of Complication if Not Cared For in Hospital, Risk of Diagnosis Which Will Require Inpatient Eval/Care/Monitoring
[2019-05-13] MEDS: BUDESONIDE NEB 0.5 MG/2 ML AMPUL NEB SCH ×2 (08:16→19:37)
[2019-05-13] MEDS: IPRATROPIUM BROMIDE 0.02% NEB 0.5 MG/2.5 ML AMPUL NEB SCH ×2 (08:16→16:17)
[2019-05-13] MEDS: LEVALBUTEROL HCL NEB 1.25 MG/3 ML AMPUL NEB SCH ×2 (08:17→16:17)
[2019-05-13] MEDS ORDERED: LEVOFLOXACIN 750 MG/D5W RTU 750 MG/150 ML RTUPB IV SCH (10:00)
[2019-05-13] MEDS: METFORMIN HCL 500 MG TABLET PO SCH ×2 (11:47→17:51)
[2019-05-13] MEDS: FAMOTIDINE 20 MG TABLET PO SCH ×2 (11:57→21:37)
[2019-05-13] MEDS: FUROSEMIDE 20 MG TABLET PO SCH (11:57)
[2019-05-13] MEDS: BENAZEPRIL HCL 10 MG TABLET PO SCH (11:58)
[2019-05-13] MEDS: METOPROLOL TARTRATE 25 MG TABLET PO SCH ×2 (11:58→21:36)
[2019-05-13 13:51] LABS: CHOLESTEROL 122.43 mg/dL (0-200); TRIGLYCERIDES 92 mg/dL (<150)
[2019-05-13 14:02] LABS: DIRECT LDL 65 mg/dL (<100)
[2019-05-13 14:06] LABS: NT PRO BNP 710 pg/mL (<450); TROPONIN I < 0.012 ng/mL
[2019-05-13] MEDS: ASPIRIN 81 MG TABLET, CHEWABLE PO SCH (17:52)
[2019-05-13] MEDS ORDERED: TAMSULOSIN HCL 0.4 MG CAP.SR.24H PO SCH (18:00)
[2019-05-13] MEDS: ATORVASTATIN CALCIUM 40 MG TABLET PO SCH (21:36)
[2019-05-14] MEDS: LEVALBUTEROL HCL NEB 1.25 MG/3 ML AMPUL NEB SCH ×4 (00:12→23:54)
[2019-05-14] MEDS: IPRATROPIUM BROMIDE 0.02% NEB 0.5 MG/2.5 ML AMPUL NEB SCH ×4 (00:12→23:54)
--- NOTE | 2019-05-14 00:21 | EKG REPORT ---
SEVERITY:- BORDERLINE ECG - SINUS TACHYCARDIA WITH APCs BORDERLINE T ABNORMALITIES, INFERIOR LEADS : Confirmed by: Deepa Dempsey 14-May-2019 00:20:58
[2019-05-14 04:08] LABS: HEMATOCRIT 42.2 % (37.9-51.0); HEMOGLOBIN 13.9 g/dL (13.5-17.0); MEAN CORPUSCULAR HEMOGLOBIN 30.9 pg (27.0-33.4); MEAN CORPUSCULAR HGB CONC 32.9 g/dL (32.0-36.0); MEAN CORPUSCULAR VOLUME 94 fl (80-97); PLATELET COUNT 136 10^3/uL (150-450); RED BLOOD COUNT 4.49 10^6/uL (4.35-5.55); RED CELL DISTRIBUTION WIDTH 14.1 % (11.5-14.0); WHITE BLOOD COUNT 11.7 10^3/uL (4.0-10.5)
[2019-05-14 04:31] LABS: ANION GAP 14 (5-19); BLOOD UREA NITROGEN 27 mg/dL (7-20); CALCIUM 9.2 mg/dL (8.4-10.2); CARBON DIOXIDE 20 mmol/L (22-30); CHLORIDE 106 mmol/L (98-107); GLUCOSE 221 mg/dL (75-110); POTASSIUM 4.5 mmol/L (3.6-5.0)
[2019-05-14] MEDS: HEPARIN SOD (PORCINE) 5,000 UNIT/ML 1 ML VIAL SUBCUT SCH ×3 (05:51→22:10)
[2019-05-14] MEDS: LEVOTHYROXINE SODIUM 0.1 MG TABLET PO SCH (05:51)
[2019-05-14] MEDS: LEVOTHYROXINE SODIUM 0.075 MG TABLET PO SCH (05:51)
[2019-05-14] MEDS: METFORMIN HCL 500 MG TABLET PO SCH ×2 (08:26→16:03)
[2019-05-14] MEDS: BUDESONIDE NEB 0.5 MG/2 ML AMPUL NEB SCH ×2 (08:32→20:04)
[2019-05-14] MEDS: BENAZEPRIL HCL 10 MG TABLET PO SCH (10:28)
[2019-05-14] MEDS: LEVOFLOXACIN 750 MG TABLET PO SCH (10:28)
[2019-05-14] MEDS: FAMOTIDINE 20 MG TABLET PO SCH ×2 (10:28→22:11)
[2019-05-14] MEDS: ASPIRIN 81 MG TABLET, CHEWABLE PO SCH (10:29)
[2019-05-14] MEDS: FUROSEMIDE 20 MG TABLET PO SCH (10:29)
[2019-05-14] MEDS: METOPROLOL TARTRATE 25 MG TABLET PO SCH ×2 (10:29→22:11)
[2019-05-14] MEDS ORDERED: LORAZEPAM INJ 2 MG/1 ML VIAL IV ONE (12:00)
--- NOTE | 2019-05-14 12:52 | RADIOLOGY REPORT (SQ) ---
EXAM DESCRIPTION: MRI HEAD WITHOUT COMPLETED DATE/TIME: 05/14/2019 12:25 pm REASON FOR STUDY: recurrent TIA COMPARISON: CT dated 05/12/2019. TECHNIQUE: Multiplanar imaging includes non-contrasted T1, T2, FLAIR, and Diffusion with ADC map seq uences. Images stored on PACS. LIMITATIONS: None. FINDINGS: ANATOMY: No anomalies. Normal vascular flow voids. Pituitary fossa normal. CSF SPACES: Normal in size and contour. No hemorrhage. CEREBRUM: A few high-signal intensity lesions scattered throughout the white matter on FLAIR imaging with distribution suggesting chronic micro-vascular ischemic change. Sulci and gyri normal in size a nd contour. No evidence of hemorrhage, mass or extraaxial fluid collection. POSTERIOR FOSSA: No signal alteration. No hemorrhage. No edema, masses or mass effect. Internal nadia tory canals, cerebello-pontine angles, mastoids normal. DIFFUSION: Negative for acute or sub-acute infarction. ORBITS: No masses. Globes normal. PARANASAL SINUSES: No fluid levels. Mucosa normal. OTHER: No other significant finding. IMPRESSION: MINIMAL MICROVASCULAR ISCHEMIC CHANGE. OTHERWISE NORMAL STUDY. EVIDENCE OF ACUTE STROKE: NO. TECHNICAL DOCUMENTATION: JOB ID: [id number] [employer]- All Rights Reserved Reading location - IP/workstation name: [email or web address]
[2019-05-14] MEDS ORDERED: FUROSEMIDE 20 MG TABLET PO PRN (13:56)
[2019-05-14] MEDS ORDERED: TRAMADOL HCL 50 MG TABLET PO PRN (13:56)
--- NOTE | 2019-05-14 14:01 | PDOC PROGRESS REPORT ---
Subjective Progress Note for:: 05/14/19 Subjective:: KEILA VIEYRA is a 74 year old male who presented to the emergency room with acute generalized weakness. Patient admits that he suddenly startled awake from sleep last evening and found himself having a tremor/chills with rigor, a transient pain in the back of his head, expressive aphasia and generalized weakness. His weakness has been accompanied by dyspnea worsened by exertion. He denies other associated or accompanying signs and symptoms. His expressive aphasia resolved within an hour and the pain in the back of his head lasted only for a minute or so. He denies any further chills or tremors but his generalized weakness and dyspnea persist. He admits 1 prior similar episode. He has not identified any aggravating or ameliorating factors for his generalized weakness. In the emergency room he was found to have an elevated white blood count 24,500 and bibasilar atelectasis on his chest x-ray which most likely reflects interstitial pneumonitis. A CT scan of his head was negative for acute changes and the remainder of his laboratory evaluation was unremarkable. He was subsequently admitted to the hospital for further evaluation and treatment on the telemetry floor. 05/14/2019. No acute events overnight. Patient comfortably sitting in chair using his nebs, alert oriented x2, denies any focal neurological symptoms, denies any fever, chills, nausea, vomiting, diarrhea, constipation or any urinary symptoms. Reason For Visit: BIBASILAR PNEUMONITIS,ACUTE EXACERBATION OF COPD Physical Exam Vital Signs: Temp Pulse Resp BP Pulse Ox 97.6 F 90 16 138/71 H 96 05/14/19 08:00 05/14/19 08:32 05/14/19 08:32 05/14/19 08:00 05/14/19 08:32 Intake & Output 05/13/19 05/14/19 05/15/19 06:59 06:59 06:59 Intake Total 50 2216 480 Output Total 0 Balance 50 2216 480 Weight 125.8 kg 125.2 kg General appearance: PRESENT: obese Respiratory exam: PRESENT: clear to auscultation javier. ABSENT: rales, rhonchi, wheezes Cardiovascular exam: PRESENT: RRR. ABSENT: diastolic murmur, rubs, systolic murmur GI/Abdominal exam: PRESENT: normal bowel sounds, soft. ABSENT: distended, guarding, mass, organolmegaly, rebound, tenderness Extremities exam: PRESENT: full ROM. ABSENT: calf tenderness, clubbing, pedal edema Neurological exam: PRESENT: alert, awake, oriented to person, oriented to place, oriented to time, oriented to situation, CN II-XII grossly intact. ABSENT: mo tor sensory deficit Results Laboratory Results: 05/14/19 03:30 05/14/19 03:30 05/13/19 05/14/19 05/14/19 13:11 03:30 03:30 WBC 11.7 H RBC 4.49 Hgb 13.9 Hct 42.2 MCV 94 MCH 30.9 MCHC 32.9 RDW 14.1 H Plt Count 136 L Sodium Potassium Chloride Carbon Dioxide Anion Gap BUN Creatinine Est GFR ( Amer) Glucose Calcium Triglycerides 92 Cholesterol 122.43 LDL Cholesterol Direct 65 VLDL Cholesterol 18.0 HDL Cholesterol 45 TSH 0.27 L 05/14/19 03:30 WBC RBC Hgb Hct MCV MCH MCHC RDW Plt Count Sodium 140.1 Potassium 4.5 Chloride 106 Carbon Dioxide 20 L Anion Gap 14 BUN 27 H Creatinine 0.91 Est GFR ( Amer) > 60 Glucose 221 H Calcium 9.2 Triglycerides Cholesterol LDL Cholesterol Direct VLDL Cholesterol HDL Cholesterol TSH 05/12/19 05/13/19 21:35 13:11 Troponin I 0.024 < 0.012 NT-Pro-B Natriuret Pep 710 H Impressions: Head CT 05/12/19 20:48 IMPRESSION: 1. No acute intracranial findings. 2. Atrophy as on prior exam. Chest X-Ray 05/12/19 22:48 IMPRESSION: Mild bibasilar atelectasis. Head MRI 05/14/19 00:00 IMPRESSION: MINIMAL MICROVASCULAR ISCHEMIC CHANGE. OTHERWISE NORMAL STUDY. EVIDENCE OF ACUTE STROKE: NO. Assessment and Plan - Diagnosis (1) TIA (transient ischemic attack) Is this a current diagnosis for this admission?: Yes Plan: Alert and oriented x4. Negative for any focal neurological deficits. CT head negative for any acute changes. MRI head negative for any acute changes. Pending carotid Doppler and CTA head. Continue antiplatelets, high intensity statins, optimize BP. (2) Acute respiratory failure with hypoxia Is this a current diagnosis for this admission?: Yes Plan: Likely due to underlying pneumonia complicated by underlying COPD. Resolved. SPO2 WNL on RA. Continue treating underlying pneumonia and COPD. (3) COPD (chronic obstructive pulmonary disease) Qualifiers: COPD type: COPD with acute exacerbation Qualified Code(s): J44.1 - Chronic obstructive pulmonary disease with (acute) exacerbation Is this a current diagnosis for this admission?: Yes Plan: Not acutely exacerbated. Currently on room air. Continue DuoNeb's, ICS, LABA, LABA. Not on home O2. Outpatient PCP and pulmonology follow-up. (4) Diabetes mellitus type 2 in obese Is this a current diagnosis for this admission?: Yes Plan: Controlled. A1c 6.7. Takes metformin at home. Continue sliding-scale insulin, metformin, Accu-Chek, diabetic diet, hypoglycemic protocol. Adjust dosage as needed. Outpatient PCP follow-up. (5) HLD (hyperlipidemia) Qualifiers: Hyperlipidemia type: unspecified Qualified Code(s): E78.5 - Hyperlipidemia, unspecified Is this a current diagnosis for this admission?: Yes Plan: ASCVD 60%. Takes Crestor 5 mg at home. Switch to high intensity statins. Diet and lifestyle modification recommended. (6) Hypertension Qualifiers: Hypertension type: essential hypertension Qualified Code(s): I10 - Essential (primary) hypertension Is this a current diagnosis for this admission?: Yes Plan: Normotensive. Euvolemic. Continue beta-blockers, SANJU, diuretics. (7) Hypothyroidism Qualifiers: Hypothyroidism type: unspecified Qualified Code(s): E03.9 - Hypothyroidism, unspecified Is this a current diagnosis for this admission?: Yes Plan: TSH 0.27. T3-T4 WNL. Restart home meds. Outpatient PCP follow-up.
[2019-05-14] MEDS ORDERED: MIRTAZAPINE 15 MG TABLET PO PRN (14:22)
[2019-05-14] MEDS: TAMSULOSIN HCL 0.4 MG CAP.SR.24H PO SCH (16:03)
[2019-05-14] MEDS ORDERED: METOPROLOL TARTRATE 25 MG TABLET PO SCH (22:00)
[2019-05-14] MEDS ORDERED: TRAZODONE HCL 50 MG TABLET PO SCH (22:00)
[2019-05-14] MEDS: ATORVASTATIN CALCIUM 40 MG TABLET PO SCH (22:11)
[2019-05-15] MEDS: HEPARIN SOD (PORCINE) 5,000 UNIT/ML 1 ML VIAL SUBCUT SCH ×2 (05:13→13:01)
[2019-05-15] MEDS: LEVOTHYROXINE SODIUM 0.075 MG TABLET PO SCH (05:48)
[2019-05-15] MEDS: LEVOTHYROXINE SODIUM 0.1 MG TABLET PO SCH (05:48)
[2019-05-15] MEDS ORDERED: (PENDING PHARMACY ID) (Levothyroxine Sodium [Synthroid] 175 MCG) PO SCH (06:00)
[2019-05-15 06:39] LABS: ABSOLUTE LYMPHOCYTES (AUTO) 3.5 10^3/uL (0.5-4.7); ABSOLUTE NEUT (AUTO) 6.7 10^3/uL (1.7-8.2); BASOPHILS % (AUTO) 0.3 % (0-2); EOSINOPHILS % (AUTO) 0.3 % (0-6); HEMATOCRIT 43.3 % (37.9-51.0); HEMOGLOBIN 14.1 g/dL (13.5-17.0); LYMPHOCYTES % (AUTO) 31.2 % (13-45); MEAN CORPUSCULAR HEMOGLOBIN 30.9 pg (27.0-33.4); MEAN CORPUSCULAR HGB CONC 32.6 g/dL (32.0-36.0); MEAN CORPUSCULAR VOLUME 95 fl (80-97); MONOCYTES % (AUTO) 8.9 % (3-13); PLATELET COUNT 168 10^3/uL (150-450); RED BLOOD COUNT 4.56 10^6/uL (4.35-5.55); RED CELL DISTRIBUTION WIDTH 14.2 % (11.5-14.0); SEGMENTED NEUTROPHILS % (AUTO) 59.3 % (42-78); TOTAL CELLS COUNTED % (AUTO) 100 %; WHITE BLOOD COUNT 11.3 10^3/uL (4.0-10.5)
[2019-05-15 06:55] LABS: ALBUMIN 3.8 g/dL (3.5-5.0); ALKALINE PHOSPHATASE 60 U/L (38-126); ANION GAP 9 (5-19); ASPARTATE AMINO TRANSFERASE 41 U/L (17-59); BILIRUBIN,DIRECT 0.1 mg/dL (0.0-0.4); BILIRUBIN,TOTAL 0.3 mg/dL (0.2-1.3); BLOOD UREA NITROGEN 35 mg/dL (7-20); CALCIUM 9.4 mg/dL (8.4-10.2); CARBON DIOXIDE 25 mmol/L (22-30); CHLORIDE 106 mmol/L (98-107); GLUCOSE 124 mg/dL (75-110); POTASSIUM 4.5 mmol/L (3.6-5.0); TOTAL PROTEIN 6.8 g/dL (6.3-8.2)
[2019-05-15] MEDS ORDERED: BENAZEPRIL HCL 5 MG TABLET PO SCH (08:00)
[2019-05-15] MEDS: METFORMIN HCL 500 MG TABLET PO SCH ×2 (08:24→17:01)
[2019-05-15] MEDS: IPRATROPIUM BROMIDE 0.02% NEB 0.5 MG/2.5 ML AMPUL NEB SCH ×2 (08:36→16:06)
[2019-05-15] MEDS: LEVALBUTEROL HCL NEB 1.25 MG/3 ML AMPUL NEB SCH ×2 (08:36→16:06)
[2019-05-15] MEDS: BUDESONIDE NEB 0.5 MG/2 ML AMPUL NEB SCH (08:36)
[2019-05-15] MEDS: METOPROLOL TARTRATE 25 MG TABLET PO SCH (09:29)
[2019-05-15] MEDS: FUROSEMIDE 20 MG TABLET PO SCH (09:32)
[2019-05-15] MEDS: LEVOFLOXACIN 750 MG TABLET PO SCH (09:33)
[2019-05-15] MEDS: ASPIRIN 81 MG TABLET, CHEWABLE PO SCH (09:33)
[2019-05-15] MEDS: FAMOTIDINE 20 MG TABLET PO SCH (09:33)
[2019-05-15] MEDS: TAMSULOSIN HCL 0.4 MG CAP.SR.24H PO SCH (09:33)
[2019-05-15] MEDS ORDERED: ASPIRIN 81 MG TABLET, ENT COATED PO SCH (10:00)
[2019-05-15] MEDS ORDERED: CHOLECALCIFEROL (D3) 1,000 UNIT (25 MCG) TABLET PO SCH (10:00)
[2019-05-15] MEDS ORDERED: (PENDING PHARMACY ID) (Cholecalciferol (Vitamin D3) [Vitamin D3] 1,000 UNIT) PO SCH (10:00)
--- NOTE | 2019-05-15 16:22 | RADIOLOGY REPORT (SQ) ---
EXAM DESCRIPTION: CAROTID DOPPLER COMPLETED DATE/TIME: 05/15/2019 4:09 pm REASON FOR STUDY: TIA J12.89 OTHER VIRAL PNEUMONIA COMPARISON: 12/13/2017. TECHNIQUE: Grayscale ultrasound, Doppler velocity and spectra, and color Doppler images acquired of the extra-cranial carotid and vertebral arteries. Images stored on PACS. LIMITATIONS: None. FINDINGS: RIGHT CAROTID CCA Velocities: Within normal limits. ICA Velocities Peak systolic 0.99 m/s. End diastolic 0.35 m/s. Proximal ICA/CCA peak systolic ratio 1.9. Scattered focal plaque. LEFT CAROTID CCA Velocities: Within normal limits. ICA Velocities Peak systolic 1.19 m/s. End diastolic 0.36 m/s. Proximal ICA/CCA peak systolic ratio 1.77. Plaque in the carotid bulb and internal carotid artery. VERTEBRAL ARTERIES: Antegrade flow. Normal waveforms. SUBCLAVIAN ARTERIES: No finding. OTHER: No other significant finding. IMPRESSION: BILATERAL PLAQUE. NO HEMODYNAMICALLY SIGNIFICANT STENOSIS. COMMENT: Quality ID #[id number]: Velocity criteria are extrapolated from the diameter data as defined by t he Society of Radiologists in Ultrasound Consensus Conference. Radiology 2003: 229; 340-346. TECHNICAL DOCUMENTATION: JOB ID: [id number] [employer]- All Rights Reserved Reading location - IP/workstation name: [email or web address]
[2019-05-15 17:08] VITALS: BP 125/61
--- NOTE | 2019-05-15 17:56 | PDOC DISCHARGE SUMMARY ---
Impression - Admit/DC Date/PCP Admission Date/Primary Care Provider: 05/13/19 02:35 JADE CORNEJO MD Discharge Date: 05/15/19 - Discharge Diagnosis (1) TIA (transient ischemic attack) Is this a current diagnosis for this admission?: Yes (2) Acute respiratory failure with hypoxia Is this a current diagnosis for this admission?: Yes (3) COPD (chronic obstructive pulmonary disease) Is this a current diagnosis for this admission?: Yes (4) Diabetes mellitus type 2 in obese Is this a current diagnosis for this admission?: Yes (5) HLD (hyperlipidemia) Is this a current diagnosis for this admission?: Yes (6) Hypertension Is this a current diagnosis for this admission?: Yes (7) Hypothyroidism Is this a current diagnosis for this admission?: Yes (8) Pneumonia Is this a current diagnosis for this admission?: Yes - Additional Information Resuscitation Status: Full Code Discharge Diet: Regular Discharge Activity: Activity As Tolerated Referrals: TAQUERIA VEE MD [ACTIVE STAFF] - JADE CORNEJO MD [Primary Care Provider] - 05/17/19 11:00 am Prescriptions: Rosuvastatin Calcium [Crestor 20 mg Tablet] 20 mg PO QHS 30 Days #30 tablet Levofloxacin [Levaquin 750 mg Tablet] 750 mg PO DAILY 3 Days #3 tablet Home Medications: Aspirin [Ecotrin 81 mg EC Tablet] 81 mg PO DAILY 05/13/19 Benazepril HCl [Lotensin 5 mg Tablet] 5 mg PO QAM 05/13/19 Cholecalciferol (Vitamin D3) [Vitamin D3] 1,000 unit PO DAILY 05/13/19 Furosemide [Lasix 20 mg Tablet] 20 mg PO DAILYP PRN 05/13/19 Levothyroxine Sodium [Synthroid] 175 mcg PO Q6AM 05/13/19 Metformin HCl [Metformin HCl ER] 2,000 mg PO DAILY 05/13/19 Metoprolol Tartrate [Lopressor 25 mg Tablet] 25 mg PO Q12 05/13/19 Mirtazapine [Remeron] 30 mg PO HSP PRN 05/13/19 Nitroglycerin 0.4 mg PO Q5MP PRN 05/13/19 Omeprazole 40 mg PO DAILY 05/13/19 Tamsulosin HCl [Flomax 0.4 mg Cap.sr] 0.8 mg PO DAILY 05/13/19 Tramadol HCl [Ultram 50 mg Tablet] 50 mg PO Q12HP PRN 05/13/19 Trazodone HCl [Desyrel 50 mg Tablet] 50 mg PO QHS 05/13/19 Umeclidinium Brm/Vilanterol Tr [Anoro Ellipta 62.5-25 Mcg INH] 1 puff IH QAM 05/13/19 Levofloxacin [Levaquin 750 mg Tablet] 750 mg PO DAILY 3 Days #3 tablet 05/15/19 Rosuvastatin Calcium [Crestor 20 mg Tablet] 20 mg PO QHS 30 Days #30 tablet 05/15/19 History of Present Illiness History of Present Illness: KEILA VIEYRA is a 74 year old male who presented to the emergency room with acute generalized weakness. Patient admits that he suddenly startled awake from sleep last evening and found himself having a tremor/chills with rigor, a transient pain in the back of his head, expressive aphasia and generalized weakness. His weakness has been accompanied by dyspnea worsened by exertion. He denies other associated or accompanying signs and symptoms. His expressive aphasia resolved within an hour and the pain in the back of his head lasted only for a minute or so. He denies any further chills or tremors but his generalized weakness and dyspnea persist. He admits 1 prior similar episode. He has not identified any aggravating or ameliorating factors for his generalized weakness. In the emergency room he was found to have an elevated white blood count 24,500 and bibasilar atelectasis on his chest x-ray which most likely reflects interstitial pneumonitis. A CT scan of his head was negative for acute changes and the remainder of his laboratory evaluation was unremarkable. He was subsequently admitted to the hospital for further evaluation and treatment on the telemetry floor. Hospital Course Hospital Course: (1) TIA (transient ischemic attack) Alert and oriented x4. Negative for any focal neurological deficits. CT head negative for any acute changes. MRI head negative for any acute changes. Carotid Doppler negative for any significant hemodynamic stenosis. Continued antiplatelets, high intensity statins, and optimize blood pressure. Outpatient PCP follow-up. Discharge on antiplatelets and high intensity statins. (2) Acute respiratory failure with hypoxia Solved. SPO2 WNL on RA. Likely due to underlying pneumonia complicated by underlying COPD. (3) COPD (chronic obstructive pulmonary disease) Not acutely exacerbated. Currently on room air. Continue DuoNeb's, ICS, LABA, LABA. Not on home O2. Advised to restart home meds. Outpatient PCP and pulmonology follow-up. (4) Diabetes mellitus type 2 in obese Controlled. A1c 6.7. Takes metformin at home. Was a started sliding-scale insulin, metformin, Accu-Chek, diabetic diet, hypoglycemic protocol. Advised to restart home meds upon discharge. Outpatient PCP follow-up. (5) HLD (hyperlipidemia) ASCVD 60%. Takes Crestor 5 mg at home. Was started on atorvastatin 40 mg p.o. nightly in the hospital. DC'd on Crestor 20 mg p.o. nightly. Diet and lifestyle modification recommended. Advised to follow-up with PCP for evaluation of LFTs. (6) Hypertension Normotensive. Euvolemic. Continued beta-blockers, SANJU, diuretics. Advised to restart home meds upon discharge. (7) Hypothyroidism TSH 0.27. T3-T4 WNL. Restarted home meds. Advised to follow-up with PCP for evaluation of TSH. (8) Pneumonia Likely community-acquired pneumonia caused by gram positives including strep pneumo. Was a started on empiric levofloxacin. Received 3 days of antibiotics inpatient. Was discharged on levofloxacin for another 3 days. Cultures remained negative. Physical Exam Vital Signs: Temp Pulse Resp BP Pulse Ox 98.2 F 84 16 163/88 H 96 05/15/19 16:33 05/15/19 16:33 05/15/19 16:33 05/15/19 16:33 05/15/19 16:33 Intake & Output 05/14/19 05/15/19 05/16/19 06:59 06:59 06:59 Intake Total 2216 1080 890 Balance 2219 1080 890 Weight 125.2 kg General appearance: PRESENT: no acute distress, well-developed, well-nourished Head exam: PRESENT: atraumatic, normocephalic Eye exam: PRESENT: conjunctiva pink, EOMI, PERRLA. ABSENT: scleral icterus Ear exam: PRESENT: normal external ear exam Mouth exam: PRESENT: moist, tongue midline Neck exam: ABSENT: carotid bruit, JVD, lymphadenopathy, thyromegaly Respiratory exam: PRESENT: clear to auscultation javier. ABSENT: rales, rhonchi, wheezes Cardiovascular exam: PRESENT: RRR. ABSENT: diastolic murmur, rubs, systolic murmur Pulses: PRESENT: normal dorsalis pedis pul Vascular exam: PRESENT: normal capillary refill GI/Abdominal exam: PRESENT: normal bowel sounds, soft. ABSENT: distended, guarding, mass, organolmegaly, rebound, tenderness Rectal exam: PRESENT: deferred Extremities exam: PRESENT: full ROM. ABSENT: calf tenderness, clubbing, pedal edema Neurological exam: PRESENT: alert, awake, oriented to person, oriented to place, oriented to time, oriented to situation, CN II-XII grossly intact. ABSENT: motor sensory deficit Psychiatric exam: PRESENT: appropriate affect, normal mood. ABSENT: homicidal ideation, suicidal ideation Skin exam: PRESENT: dry, intact, warm. ABSENT: cyanosis, rash Results Laboratory Results: WBC 11.3 10^3/uL (4.0-10.5) H 05/15/19 06:24 RBC 4.56 10^6/uL (4.35-5.55) 05/15/19 06:24 Hgb 14.1 g/dL (13.5-17.0) 05/15/19 06:24 Hct 43.3 % (37.9-51.0) 05/15/19 06:24 MCV 95 fl (80-97) 05/15/19 06:24 MCH 30.9 pg (27.0-33.4) 05/15/19 06:24 MCHC 32.6 g/dL (32.0-36.0) 05/15/19 06:24 RDW 14.2 % (11.5-14.0) H 05/15/19 06:24 Plt Count 168 10^3/uL (150-450) 05/15/19 06:24 Lymph % (Auto) 31.2 % (13-45) 05/15/19 06:24 Iron % (Auto) 8.9 % (3-13) 05/15/19 06:24 Eos % (Auto) 0.3 % (0-6) 05/15/19 06:24 Baso % (Auto) 0.3 % (0-2) 05/15/19 06:24 Absolute Neuts (auto) 6.7 10^3/uL (1.7-8.2) 05/15/19 06:24 Absolute Lymphs (auto) 3.5 10^3/uL (0.5-4.7) 05/15/19 06:24 Absolute Monos (auto) 1.0 10^3/uL (0.1-1.4) 05/15/19 06:24 Absolute Eos (auto) 0.0 10^3/uL (0.0-0.6) 05/15/19 06:24 Absolute Basos (auto) 0.0 10^3/uL (0.0-0.2) 05/15/19 06:24 Total Counted 100 05/12/19 21:35 Seg Neutrophils % 59.3 % (42-78) 05/15/19 06:24 Seg Neuts % (Manual) 79 % (42-78) H 05/12/19 21:35 Band Neutrophils % 6 % (3-5) H 05/12/19 21:35 Lymphocytes % (Manual) 7 % (13-45) L 05/12/19 21:35 Monocytes % (Manual) 8 % (3-13) 05/12/19 21:35 Eosinophils % (Manual) 0 % (0-6) 05/12/19 21:35 Basophils % (Manual) 0 % (0-2) 05/12/19 21:35 Abs Neuts (Manual) 20.8 10^3/uL (1.7-8.2) H 05/12/19 21:35 Abs Lymphs (Manual) 1.7 10^3/uL (0.5-4.7) 05/12/19 21:35 Abs Monocytes (Manual) 2.0 10^3/uL (0.1-1.4) H 05/12/19 21:35 Absolute Eos (Manual) 0.0 10^3/uL (0.0-0.6) 05/12/19 21:35 Abs Basophils (Manual) 0.0 10^3/uL (0.0-0.2) 05/12/19 21:35 Platelet Comment ADEQUATE 05/12/19 21:35 Anisocytosis SLIGHT 05/12/19 21:35 PT 14.4 SEC (11.4-15.4) 05/12/19 21:35 INR 1.11 05/12/19 21:35 Sodium 139.8 mmol/L (137-145) 05/15/19 06:24 Potassium 4.5 mmol/L (3.6-5.0) 05/15/19 06:24 Chloride 106 mmol/L (98-107) 05/15/19 06:24 Carbon Dioxide 25 mmol/L (22-30) 05/15/19 06:24 Anion Gap 9 (5-19) 05/15/19 06:24 BUN 35 mg/dL (7-20) H 05/15/19 06:24 Creatinine 1.05 mg/dL (0.52-1.25) 05/15/19 06:24 Est GFR ( Amer) > 60 (>60) 05/15/19 06:24 Est GFR (MDRD) Non-Af > 60 (>60) 05/15/19 06:24 Glucose 124 mg/dL (75-110) H 05/15/19 06:24 POC Glucose 117 mg/dL (70-110) H 05/15/19 15:50 Hemoglobin A1c % 6.6 % (4.7-6.0) H 05/14/19 03:30 Lactic Acid 1.2 mmol/L (0.7-2.1) 05/13/19 00:34 Calcium 9.4 mg/dL (8.4-10.2) 05/15/19 06:24 Magnesium 2.0 mg/dL (1.6-2.3) 05/15/19 06:24 Total Bilirubin 0.3 mg/dL (0.2-1.3) 05/15/19 06:24 Direct Bilirubin 0.1 mg/dL (0.0-0.4) 05/15/19 06:24 Neonat Total Bilirubin Not Reportable 05/15/19 06:24 Neonat Direct Bilirubin Not Reportable 05/15/19 06:24 Neonat Indirect Bili Not Reportable 05/15/19 06:24 AST 41 U/L (17-59) 05/15/19 06:24 ALT 15 U/L (<50) 05/15/19 06:24 Alkaline Phosphatase 60 U/L (38-126) 05/15/19 06:24 Troponin I < 0.012 ng/mL 05/13/19 13:11 NT-Pro-B Natriuret Pep 710 pg/mL (<450) H 05/13/19 13:11 Total Protein 6.8 g/dL (6.3-8.2) 05/15/19 06:24 Albumin 3.8 g/dL (3.5-5.0) 05/15/19 06:24 Triglycerides 92 mg/dL (<150) 05/13/19 13:11 Cholesterol 122.43 mg/dL (0-200) 05/13/19 13:11 LDL Cholesterol Direct 65 mg/dL (<100) 05/13/19 13:11 VLDL Cholesterol 18.0 mg/dL (10-31) 05/13/19 13:11 HDL Cholesterol 45 mg/dL (>40) 05/13/19 13:11 TSH 0.27 uIU/mL (0.47-4.68) L 05/14/19 03:30 Free T4 1.40 ng/dL (0.78-2.19) 05/12/19 21:35 Free T3 pg/mL 2.70 pg/mL (2.77-5.27) L 05/12/19 21:35 Urine Color YELLOW 05/12/19 21:45 Urine Appearance SLIGHTLY-CLOUDY 05/12/19 21:45 Urine pH 5.0 (5.0-9.0) 05/12/19 21:45 Ur Specific [place] 1.023 05/12/19 21:45 Urine Protein 30 mg/dL (NEGATIVE) H 05/12/19 21:45 Urine Glucose (UA) NEGATIVE mg/dL (NEGATIVE) 05/12/19 21:45 Urine Ketones TRACE mg/dL (NEGATIVE) H 05/12/19 21:45 Urine Blood SMALL (NEGATIVE) H 05/12/19 21:45 Urine Nitrite NEGATIVE (NEGATIVE) 05/12/19 21:45 Urine Bilirubin NEGATIVE (NEGATIVE) 05/12/19 21:45 Urine Urobilinogen 2.0 mg/dL (<2.0) H 05/12/19 21:45 Ur Leukocyte Esterase NEGATIVE (NEGATIVE) 05/12/19 21:45 Urine WBC (Auto) 3 /HPF 05/12/19 21:45 Urine RBC (Auto) 2 /HPF 05/12/19 21:45 U Hyaline Cast (Auto) 4 /LPF 05/12/19 21:45 Urine Mucus (Auto) FEW /LPF 05/12/19 21:45 Urine Ascorbic Acid NEGATIVE (NEGATIVE) 05/12/19 21:45 05/12/19 05/13/19 21:35 13:11 Troponin I 0.024 < 0.012 NT-Pro-B Natriuret Pep 710 H Impressions: Head CT 05/12/19 20:48 IMPRESSION: 1. No acute intracranial findings. 2. Atrophy as on prior exam. Chest X-Ray 05/12/19 22:48 IMPRESSION: Mild bibasilar atelectasis. Head MRI 05/14/19 00:00 IMPRESSION: MINIMAL MICROVASCULAR ISCHEMIC CHANGE. OTHERWISE NORMAL STUDY. EVIDENCE OF ACUTE STROKE: NO. Carotid Doppler Study 05/15/19 00:00 IMPRESSION: BILATERAL PLAQUE. NO HEMODYNAMICALLY SIGNIFICANT STENOSIS. Plan Time Spent: Greater than 30 Minutes Stroke Is this a Stroke Patient?: No Acute Heart Failure - Is this a Heart Failure Patient?: No
== END 2019-05-15 17:40 | disposition home or self-care (01) ==
LOC: ER 19:29 → INTOOBSV 05-13 02:35 → EH 05-13 02:35 → 4S 05-13 06:26
PROVIDERS: ADMIT Emergency Medicine; ATTEND Emergency Medicine
DX: J15.4 Pneumonia due to other streptococci (principal); G45.9 Transient cerebral ischemic attack, unspecified; J96.01 Acute respiratory failure with hypoxia; E11.9 Type 2 diabetes mellitus without complications; E78.5 Hyperlipidemia, unspecified; E66.9 Obesity, unspecified; E03.9 Hypothyroidism, unspecified; R47.01 Aphasia; R53.1 Weakness; M54.2 Cervicalgia; R51 Headache; I11.0 Hypertensive heart disease with heart failure; I50.9 Heart failure, unspecified; N40.0 Benign prostatic hyperplasia without lower urinary tract symptoms; M19.042 Primary osteoarthritis, left hand; M19.041 Primary osteoarthritis, right hand; M46.90 Unspecified inflammatory spondylopathy, site unspecified; F17.200 Nicotine dependence, unspecified, uncomplicated; J44.1 Chronic obstructive pulmonary disease with (acute) exacerbation; Z79.84 Long term (current) use of oral hypoglycemic drugs; Z79.82 Long term (current) use of aspirin; Z86.73 Personal history of transient ischemic attack (TIA), and cerebral infarction without residual deficits; Z83.3 Family history of diabetes mellitus; Z82.49 Family history of ischemic heart disease and other diseases of the circulatory system
CPT/HCPCS: 93005; 99285; 96365; 96367; 36415 ×4; 87040; 84439; 82962 ×3; 83735; 84443; 85025 ×2; 85027; 85610; 80048; 80053 ×2; 81001; 84484 ×2; 84481; 83036 ×2; 83605; 80061; 83880; 93880; 70551; 71045; 70450; 93010; 94640 ×4; G0378 ×3; A9270 ×32; J1644 ×2; J2920; J2060; J3490 ×9; J7120; J0456; J1956; J0696; J1815

== ENCOUNTER → 2019-12-16 | Outpatient (CLI) | payer MEDICARE ==
[2019-12-16 10:05] LABS: ALBUMIN 4.1 g/dL (3.5-5.0); ALKALINE PHOSPHATASE 80 U/L (38-126); ANION GAP 10 (5-19); ASPARTATE AMINO TRANSFERASE 25 U/L (17-59); BILIRUBIN,TOTAL 0.4 mg/dL (0.2-1.3); BLOOD UREA NITROGEN 23 mg/dL (7-20); CALCIUM 9.2 mg/dL (8.4-10.2); CARBON DIOXIDE 28 mmol/L (22-30); CHLORIDE 102 mmol/L (98-107); CHOLESTEROL 213.01 mg/dL (0-200); GLUCOSE 123 mg/dL (75-110); POTASSIUM 4.5 mmol/L (3.6-5.0); TOTAL PROTEIN 7.3 g/dL (6.3-8.2); TRIGLYCERIDES 174 mg/dL (<150)
[2019-12-16 10:16] LABS: DIRECT LDL 156 mg/dL (<100)
[2019-12-16 10:21] LABS: VLDL CHOLESTEROL 34.8 mg/dL (10-31)
== END ==
LOC: OD 08:03
PROVIDERS: ATTEND Physician Assistant
DX: E78.2 Mixed hyperlipidemia (principal); I10 Essential (primary) hypertension; Z79.899 Other long term (current) drug therapy
CPT/HCPCS: 36415; 80048; 80061; 80076

== ENCOUNTER → 2020-03-21 | Outpatient (CLI) | payer MEDICARE ==
[2020-03-21 09:42] LABS: ALBUMIN 4.2 g/dL (3.5-5.0); ALKALINE PHOSPHATASE 69 U/L (38-126); ANION GAP 7 (5-19); ASPARTATE AMINO TRANSFERASE 21 U/L (17-59); BILIRUBIN,DIRECT 0.3 mg/dL (0.0-0.4); BILIRUBIN,TOTAL 0.4 mg/dL (0.2-1.3); BLOOD UREA NITROGEN 16 mg/dL (7-20); CARBON DIOXIDE 29 mmol/L (22-30); CHLORIDE 105 mmol/L (98-107); CHOLESTEROL 108.94 mg/dL (0-200); GLUCOSE 114 mg/dL (75-110); POTASSIUM 4.6 mmol/L (3.6-5.0); TRIGLYCERIDES 148 mg/dL (<150)
[2020-03-21 10:00] LABS: DIRECT LDL 56 mg/dL (<100)
== END ==
LOC: OD 08:12
PROVIDERS: ATTEND Internal Medicine Cardiovascular Disease
DX: E78.2 Mixed hyperlipidemia (principal); E11.9 Type 2 diabetes mellitus without complications; I10 Essential (primary) hypertension
CPT/HCPCS: 36415; 80048; 80061; 80076; 83036

== ENCOUNTER → 2020-06-14 | Outpatient (CLI) | payer MEDICARE ==
[2020-06-14 09:02] LABS: ALBUMIN 4.4 g/dL (3.5-5.0); ALKALINE PHOSPHATASE 72 U/L (38-126); ANION GAP 10 (5-19); ASPARTATE AMINO TRANSFERASE 19 U/L (17-59); BILIRUBIN,DIRECT 0.1 mg/dL (0.0-0.4); BILIRUBIN,TOTAL 0.3 mg/dL (0.2-1.3); BLOOD UREA NITROGEN 25 mg/dL (7-20); CALCIUM 9.6 mg/dL (8.4-10.2); CARBON DIOXIDE 28 mmol/L (22-30); CHLORIDE 105 mmol/L (98-107); CHOLESTEROL 148.52 mg/dL (0-200); GLUCOSE 113 mg/dL (75-110); POTASSIUM 4.7 mmol/L (3.6-5.0); TOTAL PROTEIN 7.4 g/dL (6.3-8.2); TRIGLYCERIDES 155 mg/dL (<150)
[2020-06-14 09:14] LABS: DIRECT LDL 69 mg/dL (<100)
== END ==
LOC: OD 07:27
PROVIDERS: ATTEND Physician Assistant
DX: E78.2 Mixed hyperlipidemia (principal); I10 Essential (primary) hypertension; Z79.899 Other long term (current) drug therapy
CPT/HCPCS: 36415; 80048; 80061; 80076